=== PATIENT | male | born 1965 | race Caucasian/White ===

== ENCOUNTER 2017-02-10 06:53 | Emergency (ER) | payer BC ==
[2017-02-10] MEDS ORDERED: Pantoprazole IV* 40 MG IV ONE (07:20)
[2017-02-10 07:53] LABS: Hematocrit 48 % (42-52); Hemoglobin 16.2 g/dl (14.0-18.0); Mean Corpuscular HGB Conc 34 g/dl (31-36); Mean Corpuscular Hemoglobin 32 pg (27-31); Mean Corpuscular Volume 95 fL (80-94); Mean Platelet Volume 8 um3 (7.4-10.4); Red Blood Count 5.06 10^6/ul (4.0-5.4); Red Cell Distribution Width 13 % (10.5-15); White Blood Count 4.2 10^3/ul (3.5-10.8)
[2017-02-10 08:09] LABS: BUN/Creatinine Ratio 11.1 (8-20); Calcium 9.6 mg/dL (8.6-10.3); EGFR African American 93.5 (>60); EGFR Non-African American 72.7 (>60); Globulin 3.7 g/dL (2-4); Potassium 3.5 mmol/L (3.5-5.0); Total Bilirubin 0.4 mg/dL (0.2-1.0); Total Protein 7.7 g/dL (6.4-8.9)
--- NOTE | 2017-02-10 08:26 | ED ---
Tiffani Conley Thomas, scribed for Cassidy Delaney MD on 02/10/17 at 0722 . GI/ HPI - HPI Summary HPI Summary: The pt is a 51 y/o M presenting to the ED c/o blood in his stool that he first noticed yesterday. The patient was taking a BM when he noticed the toilet bowl was pretty red. Pt additionally c/o dizziness, abdominal bloating, and chronic constipation. Per triage note, the patient complains of nausea and vomiting. Pt denies any pain or any blood in his underwear. This is the first time that the patient has noticed blood in his stool. PMHx includes HTN. - History of Current Complaint Chief Complaint: EDGIBleed Time Seen by Provider: 02/10/17 07:11 Stated Complaint: BLOOD IN STOOL Hx Obtained From: Patient Onset/Duration: Started Days Ago - 1, Resolved Timing: Intermittent Severity: Moderate Current Severity: None Pain Intensity: 0 Associated Signs and Symptoms: Positive: Other: - blood in stool, dizziness, abd bloating, chronic constipation, N/V. NEGATIVE: pain, blood in underwear Aggravating Factor(s): Nothing Alleviating Factor(s): Nothing - Allergy/Home Medications Allergies/Adverse Reactions: Allergies Allergy/AdvReac Type Severity Reaction Status Date / Time No Known Allergies Allergy Verified 02/10/17 06:58 PMH/Surg Hx/FS Hx/Imm Hx Previously Healthy: No Endocrine/Hematology History: Denies: Hx Diabetes, Hx Thyroid Disease Cardiovascular History: Reports: Hx Hypertension Denies: Hx Congestive Heart Failure Respiratory History: Reports: Hx Asthma Denies: Hx Chronic Obstructive Pulmonary Disease (COPD) GI History: Denies: Hx Ulcer History: Denies: Hx Renal Disease - Surgical History Surgery Procedure, Year, and Place: appedectomy Infectious Disease History: No Infectious Disease History: Denies: Hx Hepatitis, Hx Human Immunodeficiency Virus (HIV), History Other Infectious Disease, Traveled Outside the [place] in Last 30 Days - Family History Known Family History: Positive: Hypertension - Social History Alcohol Use: Daily Alcohol Amount: 6-10 cans of beer a day Substance Use Type: Reports: None Smoking Status (MU): Never Smoked Tobacco Type: Smokeless Tobacco Amount Used/How Often: 1 CAN/DAY Length of Time of Smoking/Using Tobacco: 32 YEARS Have You Smoked in the Last Year: Yes - CHEWING TOBACCO Review of Systems Positive: Vomiting, Nausea, Other - Abd bloating, chronic constipation, bloody stools; NEGATIVE: pain Negative: Other - pain Psychological: Other - Dizziness All Other Systems Reviewed And Are Negative: Yes Physical Exam - Summary Physical Exam Summary: VITAL SIGNS: Reviewed. GENERAL: Patient is a well-developed and nourished male who is lying comfortable in the stretcher. Patient is not in any acute respiratory distress. HEAD AND FACE: No signs of trauma. No ecchymosis, hematomas or skull depressions. No sinus tenderness. EYES: PERRLA, EOMI x 2, No injected conjunctiva, no nystagmus. EARS: Hearing grossly intact. Ear canals and tympanic membranes are within normal limits. MOUTH: Oropharynx within normal limits. NECK: Supple, trachea is midline, no adenopathy, no JVD, no carotid bruit, no c- spine tenderness, neck with full ROM. CHEST: Symmetric, no tenderness at palpation LUNGS: Clear to auscultation bilaterally. No wheezing or crackles. CVS: Regular rate and rhythm, S1 and S2 present, no murmurs or gallops appreciated. ABDOMEN: Soft, non-tender. No signs of distention. No rebound no guarding, and no masses palpated. Hyperactive bowel sounds. RECTAL: There is brown stool and no external hemorrhoids. EXTREMITIES: FROM in all major joints, no edema, no cyanosis or clubbing. NEURO: Alert and oriented x 3. No acute neurological deficits. Speech is normal and follows commands. SKIN: Dry and warm Triage Information Reviewed: Yes Vital Signs On Initial Exam: Initial Vitals Temp Pulse Resp BP Pulse Ox 98.4 F 89 17 153/99 97 02/10/17 06:58 02/10/17 06:58 02/10/17 06:58 02/10/17 06:58 02/10/17 06:58 Vital Signs Reviewed: Yes Diagnostics - Vital Signs Vital Signs Temp Pulse Resp BP Pulse Ox 02/10/17 06:58 98.4 F 89 17 153/99 97 - Laboratory Lab Results: Lab Results 02/10/17 02/10/17 02/10/17 Range/Units 07:44 07:44 07:44 WBC 4.2 (3.5-10.8) 10^3/ul RBC 5.06 (4.0-5.4) 10^6/ul Hgb 16.2 (14.0-18.0) g/dl Hct 48 (42-52) % MCV 95 H (80-94) fL MCH 32 H (27-31) pg MCHC 34 (31-36) g/dl RDW 13 (10.5-15) % Plt Count 216 (150-450) 10^3/ul MPV 8 (7.4-10.4) um3 Neut % (Auto) 59.6 (38-83) % Lymph % (Auto) 25.7 (25-47) % Guthrie % (Auto) 11.1 H (1-9) % Eos % (Auto) 2.3 (0-6) % Baso % (Auto) 1.3 (0-2) % Absolute Neuts (auto) 2.5 (1.5-7.7) 10^3/ul Absolute Lymphs (auto) 1.1 (1.0-4.8) 10^3/ul Absolute Monos (auto) 0.5 (0-0.8) 10^3/ul Absolute Eos (auto) 0.1 (0-0.6) 10^3/ul Absolute Basos (auto) 0.1 (0-0.2) 10^3/ul Absolute Nucleated RBC 0 10^3/ul Nucleated RBC % 0.1 INR (Anticoag Therapy) 0.82 L (0.89-1.11) APTT 30.9 (26.0-36.3) seconds Sodium 139 (133-145) mmol/L Potassium 3.5 (3.5-5.0) mmol/L Chloride 103 (101-111) mmol/L Carbon Dioxide 24 (22-32) mmol/L Anion Gap 12 H (2-11) mmol/L BUN 12 (6-24) mg/dL Creatinine 1.08 (0.67-1.17) mg/dL Est GFR ( Amer) 93.5 (>60) Est GFR (Non-Af Amer) 72.7 (>60) BUN/Creatinine Ratio 11.1 (8-20) Glucose 101 H (70-100) mg/dL Calcium 9.6 (8.6-10.3) mg/dL Total Bilirubin 0.40 (0.2-1.0) mg/dL AST 89 H (13-39) U/L ALT 80 H (7-52) U/L Alkaline Phosphatase 60 (34-104) U/L Total Protein 7.7 (6.4-8.9) g/dL Albumin 4.0 (3.2-5.2) g/dL Globulin 3.7 (2-4) g/dL Albumin/Globulin Ratio 1.1 (1-3) Result Diagrams: 02/10/17 07:44 02/10/17 07:44 Lab Statement: Any lab studies that have been ordered have been reviewed, and results considered in the medical decision making process. GIGU Course/Dx - Course Assessment/Plan: The patient is hemodynamically stable and his bloodwork is unremarkable except for mildly elevated liver enzymes although the patient admits to drinking often. He was advised to follow up with his primary care physician in order to schedule a colonoscopy. - Diagnoses Provider Diagnoses: Lower GI bleed (mild), Probable internal hemorrhoids Discharge - Discharge Plan Condition: Stable Disposition: HOME Patient Education Materials: Gastrointestinal Bleeding (ED) Referrals: Matias Cruz MD [Primary Care Provider] - 3 Days Additional Instructions: Eat more fiber and stay well hydrated. Try to take an easy bowel movement once per day. Follow up with PMD and GI. I do recommend colonoscopy BASHIR. Return to the emergency department for new or worsening symptoms. The documentation as recorded by the Tiffani barajas Thomas accurately reflects the service I personally performed and the decisions made by me, Cassidy Delaney MD.
[2017-02-10 08:40] VITALS: BP 140/88
== END 2017-02-10 08:39 | disposition home or self-care (01) ==
LOC: ED 06:53
DX: K92.2 Gastrointestinal hemorrhage, unspecified (principal); K59.09 Other constipation; R42 Dizziness and giddiness; R11.2 Nausea with vomiting, unspecified; R14.0 Abdominal distension (gaseous)
CPT/HCPCS: 36415; 80053; 82270; 85025; 85610; 85730; 99282

== ENCOUNTER 2017-03-07 10:59 | Emergency (ER) | payer BC ==
--- OUTSIDE RECORDS SUMMARY | 2017-03-07 11:13 | XMS REPORT ---
:1965 External Reference #:[id number] Author Organization [facility] Address [address] [address] Phone [phone] Care Team Providers Name Role Phone Matias Cruz III, MD Primary Care Physician Unavailable Payers Type Date Identification Numbers Payment Provider Subscriber Commercial Effective: Policy Number: BS Facets Shannan Alejo 2012 [id number] PayID: [id number] [facility] [id number] [place] [id number] Problems Date Description Provider Status Onset: 05/31/2011 Chest pain Matias Cruz M.D. Active Onset: 05/31/2011 Elevated blood-pressure reading Matias Cruz M.D. Active without diagnosis of hypertension Onset: 05/31/2011 Pure hypercholesterolemia Matias Cruz M.D. Active Onset: 05/31/2011 Asthma without status asthmaticus Matias Cruz M.D. Active Onset: 05/31/2012 Gastroesophageal reflux disease Matias Cruz M.D. Active Onset: 12/13/2012 Benign essential hypertension Tristin Jeter M.D. 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 Cigarette Use Quit 4 Years Ago Cigarette Use light smoker only; began age 21 Smokeless Tobacco Current Smokeless Tobacco User, Uses 8 Times Daily ETOH Use 12/28/2012 Drinks 2 Alcoholic about 3 oz of whiskey Beverages Per Day daily Smoking Patient is a former smoker Recreational Drug Use Denies Drug Use Daily Caffeine Consumes on average 3 cups of regular coffee per day Exercise Type/Frequency Exercises rarely outside of working Allergies, Adverse Reactions, Alerts Date Description Reaction Status Severity Comments 05/31/2011 NKDA active Medications Medication Date Status Form Strength Qnty SIG Indications Ordering Provider Blood Pressure Misc 1unit large cuff I10 Matias Grady Monitor 2016 s bp machine Nancy Digital/Manual for home bp M.D. Inflate monitoring Proair HFA 02/16/ Active Aerosol 108(90Bas 1unit 2 puffs by Matias Grady 2016 e) s mouth four Nancy, mcg/Act times a day M.D. as needed Symbicort 06/01/ Active Aerosol 80-4.5mcg 20.7g inhale 2 J45.909 Matias Grady 2015 /Act m puffs by Nancy, mouth twice M.D. a day Chlorthalidone 06/01/ Active Tablets 25mg 45tab Take R03.0 Matias Grady 2015 s One-Half Nancy, Tablet By M.D. Mouth Every Day Symbicort 10/04/ Hx Aerosol 160-4.5mc 60uni 2 puffs J45.909 Matias Grady 2014 - g/Act ts twice a day Nancy 06/01/ MLeigh 2015 Ventolin HFA 07/03/ Hx Aerosol 108(90Bas 18uni inhale two Matias Grady 2013 - e) ts puffs by Nancy, 02/16/ mcg/Act mouth up to M.D. 2016 4 times a day as needed Omeprazole 05/31/ Hx Capsules 20mg 30cap 1 po qd Matias Grady 2012 - DR isabelle Cruz, 12/28/ M.DCarlos A 2012 Symbicort 12/07/ Hx Aerosol 80-4.5mcg 10.2u inhale two Bishop 2010 - /Act nits puffs by JAYDA Mendoza 10/04/ mouth twice 2015 daily Symbicort 04/23/ Hx Aerosol 80-4.5 10.20 2 puffs bid Scott 2009 - 0gm Rohan De La O, 12/07/ MLeigh,FACP 2010 Albuterol 05/30/ Hx 1unit 2 puffs up Scott Inhaler 2008 s to four Rohan De La O, 10/22/ times a day MLeigh,FACP 2013 as needed Singulair 05/30/ Hx Tablets 10mg 90tab 1 po qd Matias Grady 2008 - s Nancy, 02/18/ MLeigh 2009 Prednisone / Hx Tablets 20mg 20tab take 3 po Unknown 0000 - s qam x 12/28/ 3days, then 2012 2 po qam x3 days then 1 po qam x3 days then 12 po qam x3 days (take in am with food) Zithromax / Hx Tablets 250mg 1 tab take Unknown 0000 - 2 on day 1, then 2015 daily Immunizations CPT Code Status Date Vaccine Lot # [id number] Given 12/22/2016 Influenza Virus Vaccine, Quadrivalent, Split, Preservative Free [id number] Given 12/28/2012 Flu Vaccine Split Virus Preservative Free For [id number] 3Yr Older 13222 Given 06/10/2011 Pneumonia Vaccine [id number] 34610 Given 06/10/2011 Influenza Virus 3Yrs & Over [id number] 60080 Given 12/16/2009 Influenza Virus 3Yrs & Over [id number] 78075 Given 05/26/2007 Tdap - Tetanus/Diptheria/Acellular Pertussis 70716 Given 05/26/2007 Tdap - Tetanus/Diptheria/Acellular Pertussis Vital Signs Date Vital Result Comment 02/16/2017 Height 73 inches 6'1" Weight 301.00 lb Heart Rate 99 /min BP Systolic Sitting 148 mmHg BP Diastolic Sitting 105 mmHg Body Temperature 99.4 F O2 % BldC Oximetry 98 % BMI (Body Mass Index) 39.7 kg/m2 06/02/2015 Height 73 inches 6'1" Weight 325.00 lb Heart Rate 101 /min BP Systolic Sitting 144 mmHg BP Diastolic Sitting 92 mmHg Body Temperature 99.1 F O2 % BldC Oximetry 97 % BMI (Body Mass Index) 42.9 kg/m2 10/04/2014 Height 73 inches 6'1" Weight 310.25 lb Heart Rate 90 /min BP Systolic 148 mmHg BP Diastolic 100 mmHg Respiratory Rate 16 /min O2 % BldC Oximetry 97 % BMI (Body Mass Index) 40.9 kg/m2 08/07/2014 Height 73 inches 6'1" Weight 300.00 lb Heart Rate 97 /min BP Systolic 148 mmHg BP Diastolic 96 mmHg Pain Level 9 BMI (Body Mass Index) 39.6 kg/m2 07/04/2014 Height 72 inches 6'0" Weight 325.00 lb Heart Rate 88 /min BP Systolic Sitting 140 mmHg BP Diastolic Sitting 68 mmHg O2 % BldC Oximetry 95 % BMI (Body Mass Index) 44.1 kg/m2 12/28/2012 Weight 293.00 lb Heart Rate 106 /min BP Systolic Sitting 142 mmHg BP Diastolic Sitting 90 mmHg 12/13/2012 Height 72 inches 6'0" Weight 295.00 lb Heart Rate 76 /min BP Systolic 154 mmHg Ra large cuff BP Diastolic 110 mmHg Ra large cuff BP Systolic Sitting 154 mmHg LA cuff BP Diastolic Sitting 106 mmHg LA cuff BP Systolic Standing 154 mmHg BP Diastolic Standing 102 mmHg Respiratory Rate 18 /min BMI (Body Mass Index) 40.0 kg/m2 10/02/2012 Weight 306.00 lb Heart Rate 70 /min BP Systolic Sitting 144 mmHg BP Diastolic Sitting 102 mmHg O2 % BldC Oximetry 98 % 07/03/2012 Height 73.5 inches 6'1.50" Weight 309.00 lb Heart Rate 94 /min BP Systolic Sitting 148 mmHg initially 169/98 BP Diastolic Sitting 100 mmHg initially 169/98 BMI (Body Mass Index) 40.2 kg/m2 05/31/2012 Height 73.5 inches 6'1.50" Weight 303.00 lb Heart Rate 84 /min BP Systolic Sitting 134 mmHg BP Diastolic Sitting 82 mmHg BMI (Body Mass Index) 39.4 kg/m2 06/10/2011 Height 74 inches 6'2" Heart Rate 80 /min BP Systolic Sitting 118 mmHg lg BP Diastolic Sitting 86 mmHg lg 05/31/2011 Height 74 inches 6'2" Weight 297.00 lb Heart Rate 96 /min BP Systolic Sitting 148 mmHg BP Diastolic Sitting 98 mmHg BMI (Body Mass Index) 38.1 kg/m2 12/16/2009 Weight 288.00 lb Heart Rate 98 /min BP Systolic Sitting 142 mmHg BP Diastolic Sitting 90 mmHg 07/25/2009 Weight 293.00 lb Heart Rate 100 /min BP Systolic Sitting 140 mmHg BP Diastolic Sitting 82 mmHg 02/18/2009 Weight 286.00 lb Heart Rate 72 /min BP Systolic Sitting 134 mmHg BP Diastolic Sitting 94 mmHg 07/04/2008 Height 72.5 inches 6'0.50" Weight 286.00 lb Heart Rate 80 /min BP Systolic Sitting 122 mmHg BP Diastolic Sitting 92 mmHg BMI (Body Mass Index) 38.3 kg/m2 05/30/2008 Height 72.5 inches 6'0.50" Weight 285.00 lb Heart Rate 68 /min BP Systolic Sitting 128 mmHg BP Diastolic Sitting 88 mmHg BMI (Body Mass Index) 38.1 kg/m2 Results Test Date Test Result H/L Range Note Inr/Protime 02/10/2017 Inr 0.82 Low 0.89-1.11 Laboratory test finding 02/10/2017 Partial Thrombo 30.9 seconds 26.0- 36.3 Time PTT Comp Metabolic Panel 02/10/2017 Sodium 139 mmol/L 133-145 Potassium 3.5 mmol/L 3.5-5.0 Chloride 103 mmol/L 101-111 Co2 Carbon Dioxide 24 mmol/L 22-32 Anion Gap 12 mmol/L High 2-11 Glucose 101 mg/dL High 70-100 Blood Urea Nitrogen 12 mg/dL 6-24 Creatinine 1.08 mg/dL 0.67-1.17 BUN/Creatinine Ratio 11.1 8-20 Calcium 9.6 mg/dL 8.6-10.3 Total Protein 7.7 g/dL 6.4-8.9 Albumin 4.0 g/dL 3.2-5.2 Globulin 3.7 g/dL 2-4 Albumin/Globulin Ratio 1.1 1-3 Total Bilirubin 0.40 mg/dL 0.2-1.0 Alkaline Phosphatase 60 U/L 34-104 Alt 80 U/L High 7-52 Ast 89 U/L High 13-39 Egfr Non- 72.7 >60 Egfr 93.5 >60 1 CBC Auto Diff 02/10/2017 White Blood Count 4.2 10^3/uL 3.5-10.8 Red Blood Count 5.06 10^6/uL 4.0-5.4 Hemoglobin 16.2 g/dL 14.0-18.0 Hematocrit 48 % 42-52 Mean Corpuscular Volume 95 fL High 80-94 Mean Corpuscular Hemoglobin 32 pg High 27-31 Mean Corpuscular HGB Conc 34 g/dL 31-36 Red Cell Distribution Width 13 % 10.5-15 Platelet Count 216 10^3/uL 150-450 Mean Platelet Volume 8 um3 7.4-10.4 Abs Neutrophils 2.5 10^3/uL 1.5-7.7 Abs Lymphocytes 1.1 10^3/uL 1.0-4.8 Abs Monocytes 0.5 10^3/uL 0-0.8 Abs Eosinophils 0.1 10^3/uL 0-0.6 Abs Basophils 0.1 10^3/uL 0-0.2 Abs Nucleated RBC 0 10^3/uL Granulocyte % 59.6 % 38-83 Lymphocyte % 25.7 % 25-47 Monocyte % 11.1 % High 1-9 Eosinophil % 2.3 % 0-6 Basophil % 1.3 % 0-2 Nucleated Red Blood Cells % 0.1 Stool Occult Blood, 02/10/2017 Stool Occult Blood, SEE RESULT BELOW 2 Screen Screen Laboratory test finding 09/08/2014 Potassium Redraw 3.8 mmol/L 3.5-5.0 Magnesium 2.1 mg/dL 1.9-2.7 Ast Redraw 27 U/L 13-39 Laboratory test 09/08/2014 Blood Culture SEE RESULT BELOW 3, 4 finding CBC Auto Diff 09/08/2014 White Blood Count 7.4 10^3/uL 4.8-10.8 Red Blood Count 5.34 10^6/uL 4.0-5.4 Hemoglobin 17.3 g/dL 14.0-18.0 Hematocrit 51 % 42-52 Mean Corpuscular Volume 95 fL High 80-94 Mean Corpuscular Hemoglobin 32 pg High 27-31 Mean Corpuscular HGB Conc 34 g/dL 31-36 Red Cell Distribution Width 13 % 10.5-15 Platelet Count 233 10^3/uL 150-450 Mean Platelet Volume 8 um3 7.4-10.4 Abs Neutrophils 4.6 10^3/uL 1.5-7.7 Abs Lymphocytes 2.0 10^3/uL 1.0-4.8 Abs Monocytes 0.4 10^3/uL 0-0.8 Abs Eosinophils 0.2 10^3/uL 0-0.6 Abs Basophils 0.1 10^3/uL 0-0.2 Abs Nucleated RBC 0.02 10^3/uL Granulocyte % 62.4 % 38-83 Lymphocyte % 27.7 % 25-47 Monocyte % 6.0 % 1-9 Eosinophil % 2.7 % 0-6 Basophil % 1.2 % 0-2 Nucleated Red Blood Cells % 0.3 Laboratory test finding 09/08/2014 Magnesium TNP mg/dL 1.9-2.7 5 TSH (Thyroid Stim Horm) 1.14 ?IU/mL 0.34-5.60 6 Inr/Protime 09/08/2014 Inr 0.84 0.78-1.07 Laboratory test finding 09/08/2014 Partial Thrombo Time 33.3 seconds 26.0 -36.3 PTT D Dimer Quantitative < 200 ng/mL Less Than 230 7 Lactic Acid 2.2 mmol/L 0.5-2.2 B-Type Natriuretic Peptide BNP 28 pg/mL 8 Comp Metabolic Panel 09/08/2014 Sodium 138 mmol/L 133-145 Chloride 104 mmol/L 101-111 Co2 Carbon Dioxide 23 mmol/L 22-32 Glucose 88 mg/dL 70-100 Blood Urea Nitrogen 10 mg/dL 6-24 Creatinine 1.02 mg/dL 0.67-1.17 BUN/Creatinine Ratio 9.8 8-20 Calcium 9.2 mg/dL 8.6-10.3 9 Total Protein 8.0 g/dL 6.4-8.9 Albumin 4.4 g/dL 3.2-5.2 Globulin 3.6 g/dL 2-4 Albumin/Globulin Ratio 1.2 1-3 Total Bilirubin 0.30 mg/dL 0.2-1.0 Alkaline Phosphatase 88 U/L 34-104 Alt 32 U/L 7-52 Egfr Non- 78.3 >60 Egfr 100.7 >60 10 Potassium TNP mmol/L 3.5-5.0 11 Anion Gap TNP mmol/L 2-11 Ast TNP U/L 13-39 12 CKMB 09/08/2014 CKMB ng/mL 3.0 ng/mL 0.6-6.3 Laboratory test finding 09/08/2014 Lipase 40 U/L 11.0-82.0 13 Creatine Kinase(CK) 156 U/L 10-223 14 C Reactive Protein 5.52 mg/L High < 5.00 15 Troponin-I (TnI) 0.00 ng/mL <0.03 16 Lipid Profile (Trig/Chol/HDL) 07/01/2014 Triglycerides 97 mg/dL 17, 18 Cholesterol 216 mg/dL 17, 19 HDL Cholesterol 47.9 mg/dL 17, 20 LDL Cholesterol 149 mg/dL 17, 21 Comp Metabolic Panel 07/01/2014 Sodium 139 mmol/L 133-145 17 Potassium 4.4 mmol/L 3.5-5.0 17 Chloride 106 mmol/L 101-111 17 Co2 Carbon Dioxide 28 mmol/L 22-32 17 Anion Gap 5 mmol/L 2-11 17 Glucose 105 mg/dL High 70-100 17 Blood Urea Nitrogen 15 mg/dL 6-24 17 Creatinine 0.97 mg/dL 0.67-1.17 17 BUN/Creatinine Ratio 15.5 8-20 17 Calcium 9.4 mg/dL 8.6-10.3 17 Total Protein 7.0 g/dL 6.4-8.9 17 Albumin 4.2 g/dL 3.2-5.2 17 Globulin 2.8 g/dL 2-4 17 Albumin/Globulin Ratio 1.5 1-3 17 Total Bilirubin 0.40 mg/dL 0.2-1.0 17 Alkaline Phosphatase 58 U/L 34-104 17 Alt 28 U/L 7-52 17 Ast 33 U/L 13-39 17 Egfr Non- 83.0 >60 17 Egfr 106.7 >60 17, 22 CBC Auto Diff 06/19/2012 White Blood Count 5.5 10^3/uL 4.8-10.8 Red Blood Count 5.08 10^6/uL 4.0-5.4 Hemoglobin 15.6 g/dL 14.0-18.0 Hematocrit 48 % 42-52 Mean Corpuscular Volume 94 fL 80-94 Mean Corpuscular Hemoglobin 31 pg 27-31 Mean Corpuscular HGB Conc 33 g/dL 31-36 Red Cell Distribution Width 13 % 10.5-15 Platelet Count 214 10^3/uL 150-450 Mean Platelet Volume 9 um3 7.4-10.4 Abs Neutrophils 3.8 10^3/uL 1.5-7.7 Abs Lymphocytes 1.1 10^3/uL 1.0-4.8 Abs Monocytes 0.4 10^3/uL 0-0.8 Abs Eosinophils 0.1 10^3/uL 0-0.6 Abs Basophils 0.1 10^3/uL 0-0.2 Abs Nucleated RBC 0.01 10^3/uL Comp Metabolic Panel 06/19/2012 Sodium 142 mmol/L 133-145 Potassium 4.6 mmol/L 3.5-5.0 Chloride 108 mmol/L 101-111 Co2 Carbon Dioxide 26.0 mmol/L 22-32 Anion Gap 8.0 mmol/L 2-11 Glucose 98 mg/dL 70-100 Blood Urea Nitrogen 12 mg/dL 6-24 Creatinine 1.20 mg/dL 0.50-1.40 BUN/Creatinine Ratio 10.0 8-20 Calcium 9.7 mg/dL 8.1-9.9 Total Protein 7.5 g/dL 6.2-8.1 Albumin 4.1 g/dL 3.6-5.4 Globulin 3.4 g/dL 2-4 Albumin/Globulin Ratio 1.2 1-3 Total Bilirubin 0.5 mg/dL 0.4-1.5 Alkaline Phosphatase 67 U/L 30-110 Alt 27 U/L 14-54 Ast 22 U/L 12-42 Egfr Non- 65.5 >60 Egfr 84.2 >60 23 Laboratory test 06/19/2012 TSH (Thyroid Stimulating 1.12 miu/mL 0.34- 5.60 24 finding Horm) Lipid Profile 06/19/2012 Triglycerides 71 mg/dL 40-200 (Trig/Chol/HDL) Cholesterol 240 mg/dL High Less than 200 HDL Cholesterol 66 mg/dL High 40-60 25 Cholesterol/HDL Ratio 3.6 Average 1-4.44 LDL Cholesterol 159.8 mg/dL High Less Than 100 26 Manual Differential 06/19/2012 Neutrophil % 72 % 38-83 Lymphocytes % 18 % Low 25-47 Monocytes % 7 % 0-13 Eosinophils % 2 % 0-6 Reactive Lymph % 1 % 0-6 RBC Morphology Normal Normal Laboratory test finding 05/24/2011 Troponin-I 0.01 NG/ML 0-0.06 27 Urinalysis 05/24/2011 Ua Color YELLOW Yellow Appearance-Urine CLEAR Clear Specific Jackson-Ur 1.014 1.010-1.030 Esterase-Urine NEGATIVE Negative Nitrite NEGATIVE Negative [id number] NEGATIVE Negative Protein-Urine NEGATIVE Negative PH-Urine 8.0 5-9 Blood-Urine NEGATIVE Negative Ketones-Urine 2+ Negative Bilirubin-Ur NEGATIVE Negative Glucose-Urine NEGATIVE Negative CBC Auto Diff 05/24/2011 White Blood Count 5.5 CUMM 4.8-10.8 28 Red Cell Count 4.82 CUMM 4.6-6.2 28 Hemoglobin 15.4 g/dL 14.0-18.0 28 Hematocrit 45 % 42-52 28 Mean Corpuscular Volume 92 um3 80-94 28 Mean Corpuscular Hemoglob 32 pg High 27-31 28 Mean Corpuscular HGB Cone 35 g/dL 32-36 28 Redcell Distribution WDTH 13 % 10.5-15 28 Platelet Count 177 CUMM 150-450 28 Mean Platelet Volume 8.8 um3 7.4-10.4 28 Gran % 74.2 % 38-83 28 Lymph % 16.5 % Low 25-47 28 Mononuclear % 8.1 % 1-9 28 Eosinophil % 0.9 % 0-6 28 Basophil % 0.3 % 0-2 28 Abs Lymphs 0.9 Low 1.0-4.8 28 Abs Mononuclear 0.4 0-0.8 28 Absolute Neutrophil Count 4.1 1.5-7.7 28 Abs Eosinophils 0.1 0-0.6 28 Abs Basophils 0 0-0.2 28, 29 Laboratory test 05/24/2011 D Dimer Quantitative 261 NG/ML High Less Than 28, 30 finding 230 Comp Metabolic 05/24/2011 Sodium 138 mmol/L 135-145 28 Panel Potassium 4.1 mmol/L 3.5-5.0 28 Chloride 102 mmol/L 101-111 28 Co2 (Carbon Dioxide) 23.0 mmol/L 22-32 28 Anion Gap 13.0 mmol/L High 2-11 28, 31 Glucose 104 mg/dL High 70-100 28 BUN 10 mg/dL 6-24 28 Creatinine 0.9 mg/dL 0.50-1.40 28 One Over Creatinine 1.11 28 BUN/Creatinine Ratio 11.1 8-20 28 Calcium 9.2 mg/dL 8.1-9.9 28 Total Protein 7.7 GM/DL 6.2-8.1 28 Albumin 4.2 GM/DL 3.6-5.4 28 Globulin 3.5 GM/DL 2-4 28 Albumin/Globulin Ratio 1.2 1-3 28 Bilirubin Total 1.0 mg/dL 0.4-1.5 28, 32 Alkaline Phosphatase 48 U/L 39-117 28 Alt (SGPT) 94 U/L High 17-63 28 Ast (Sgot) 71 U/L High 12-42 28 eGFR Non- 91.7 > 60 28 eGFR 117.9 > 60 28, 33 Laboratory test finding 05/24/2011 Troponin-I 0.01 NG/ML 0-0.06 28, 34 Protime 05/24/2011 Inr 0.93 0.88-1.13 28, 35 Protime 10.9 SEC 10.3-13.5 28, 36 Laboratory test finding 05/24/2011 PTT (Aptt) 26.1 SEC 25.1-38.5 28 BNP Evaluatr 36.0 pg/mL 0-100 28 HIV Self Referred Nonreactive Nonreactive 28, 37 DR Cruz's Lab Panel 11/21/2009 TSH 0.80 MIU/ML 0.34-5.60 Comp Metabolic Panel 11/21/2009 Sodium 138 mmol/L 135-145 Potassium 4.3 mmol/L 3.5-5.0 Chloride 105 mmol/L 101-111 Co2 (Carbon Dioxide) 25.0 mmol/L 22-32 Anion Gap 8.0 mmol/L 2-11 38 Glucose 96 mg/dL 70-100 39 BUN 9 mg/dL 6-24 Creatinine 1.10 mg/dL 0.50-1.40 One Over Creatinine 0.90 BUN/Creatinine Ratio 8.2 8-20 Calcium 8.8 mg/dL 8.1-9.9 Total Protein 7.1 GM/DL 6.2-8.1 Albumin 3.9 GM/DL 3.6-5.4 Globulin 3.2 GM/DL 2-4 Albumin/Globulin Ratio 1.2 1-3 Bilirubin Total 0.6 mg/dL 0.4-1.5 40 Alkaline Phosphatase 56 U/L 39-117 Alt (SGPT) 23 U/L 17-63 Ast (Sgot) 18 U/L 12-42 eGFR Non- 78.0 > 60 eGFR 94.4 > 60 41 Lipid Profile (Trig/Chol/HDL) 11/21/2009 Triglyceride 82 mg/dL 40-200 Cholesterol 212 mg/dL High Less Than 200 42 High Density Lipoprotein 53 mg/dL 40-60 43 Cholesterol/HDL Ratio 4.00 AVERAGE 1-4.97 Low Density Lipoprotein 143 mg/dL High Less Than 100 44 CBC With Electronic Diff 11/21/2009 White Blood Count 4.6 CUMM Low 4.8- 10.8 Red Cell Count 4.96 CUMM 4.6-6.2 Hemoglobin 16.0 g/dL 14.0-18.0 Hematocrit 47 % 42-52 Mean Corpuscular Volume 94 um3 80-94 Mean Corpuscular Hemoglob 32 pg High 27-31 Mean Corpuscular HGB Cone 35 g/dL 32-36 Redcell Distribution WDTH 13 % 10.5-15 Platelet Count 223 CUMM 150-450 Mean Platelet Volume 7.7 um3 7.4-10.4 Gran % 65.1 % 38-83 Lymph % 23.2 % Low 25-47 Mononuclear % 9.0 % 1-9 Eosinophil % 2.1 % 0-6 Basophil % 0.6 % 0-2 Abs Lymphs 1.1 1.0-4.8 Abs Mononuclear 0.4 0-0.8 Absolute Neutrophil Count 3.0 1.5-7.7 Abs Eosinophils 0.1 0-0.6 Abs Basophils 0 0-0.2 Laboratory test finding 11/21/2009 PSA Screening 0.62 NG/ML 0-4 Laboratory test finding 06/04/2008 TSH 1.51 MIU/ML 0.34-5.60 Lipid Profile (Trig/Chol/HDL) 06/04/2008 Triglyceride 123 mg/dL 40-200 Cholesterol 218 mg/dL High Less Than 200 45 High Density Lipoprotein 62 mg/dL High 40-60 46 Cholesterol/HDL Ratio 3.52 AVERAGE 1-4.97 Low Density Lipoprotein 131 mg/dL High Less Than 100 47 Comp Metabolic Panel 06/04/2008 Sodium 134 mmol/L Low 135-145 Potassium 4.3 mmol/L 3.5-5.0 Chloride 103 mmol/L 101-111 Co2 (Carbon Dioxide) 27.0 mmol/L 22-32 Anion Gap 4.0 mmol/L 2-11 48 Glucose 81 mg/dL 70-100 49 BUN 9 mg/dL 6-24 Creatinine 1.10 mg/dL 0.50-1.40 One Over Creatinine 0.90 BUN/Creatinine Ratio 8.2 8-20 Calcium 9.2 mg/dL 8.1-9.9 50 Total Protein 7.2 GM/DL 6.2-8.1 Albumin 3.9 GM/DL 3.6-5.4 Globulin 3.3 GM/DL 2-4 Albumin/Globulin Ratio 1.2 1-3 Bilirubin Total 0.7 mg/dL 0.4-1.5 Alkaline Phosphatase 70 U/L 39-117 Alt (SGPT) 39 U/L 17-63 Ast (Sgot) 32 U/L 12-42 CBC With Electronic Diff 06/04/2008 White Blood Count 5.7 CUMM 4.8-10.8 Red Cell Count 5.21 CUMM 4.6-6.2 Hemoglobin 16.1 g/dL 14.0-18.0 Hematocrit 47 % 42-52 Mean Corpuscular Volume 90 um3 80-94 Mean Corpuscular Hemoglob 31 pg 27-31 Mean Corpuscular HGB Cone 34 g/dL 32-36 Redcell Distribution WDTH 13 % 10.5-15 Platelet Count 238 CUMM 150-450 Mean Platelet Volume 8.2 um3 7.4-10.4 Gran % 62.7 % 38-83 Lymph % 26.2 % 25-47 Mononuclear % 7.4 % 1-9 Eosinophil % 3.3 % 0-6 Basophil % 0.4 % 0-2 Abs Lymphs 1.5 1.0-4.8 Abs Mononuclear 0.4 0-0.8 Absolute Neutrophil Count 3.6 1.5-7.7 Abs Eosinophils 0.2 0-0.6 Abs Basophils 0 0-0.2 1 Because ethnic data is not always readily available, this report includes an eGFR for both -Americans and non- Americans. The National Kidney Disease Education Program (NKDEP) does not endorse the use of the MDRD equation for patients that are not between the ages of 18 and 70, are , have extremes of body size, muscle mass, or nutritional status, or are non- or non-. According to the National Kidney Foundation, irrespective of diagnosis, the stage of the disease is based on the level of kidney function: Stage Description GFR(mL/min/1.73 m(2)) 1 Kidney damage with normal or decreased GFR 90 2 Kidney damage with mild decrease in GFR 60-89 3 Moderate decrease in GFR 30-59 4 Severe decrease in GFR 15-29 5 Kidney failure <15 (or dialysis) 2 SEE RESULT BELOW Name: SHANNAN ALEJO : [address]: Cassidy Delaney MD Acct: [id number] Unit: [id number] AGE: 51 Location: ED Re02/10/17 SEX: M Status: REG ER SPEC: [id number] AMADOR: 02/10/17 [facility] DR: Cassidy Delaney MD REQ: [id number] RECD: 02/10/17 STATUS: ALY CORTES DR: Matias Cruz III, MD _ SOURCE: STOOL SPDESC: ORDERED: Occult Bl, Scn Procedure Result Reported Site Stool Occult Blood (1) Final 02/10/17- 36 ML Stool Occult Blood Negative Collection Date (1) 02/10/17 * ML - MAIN LAB ([facility]) . END OF REPORT * ML=Testing performed at Main Lab DEPARTMENT OF PATHOLOGY, [address] [place] [address] Brant Zuniga M.D. Director [facility] # [id number] 3 Patient is On Antibiotics? NO 4 SEE RESULT BELOW Name: SHANNAN ALEJO : [address]: Luther Quintero DO Acct: [id number] Unit: [id number] AGE: 49 Location: ED Re09/08/14 SEX: M Status: DEP ER SPEC: [id number] AMADOR: 09/08/14-[address]: Luther Quintero DO REQ: [id number] RECD: 09/08/14 STATUS: COMP [facility] DR: Matias Cruz III, MD _ SOURCE: BLOOD,VENO SPDESC: ORDERED: Blood Cult COMMENTS: Patient is On Antibiotics? NO Procedure Result Verified Site Aerobic Culture Bottle Final 09/13/14- 2242 ML No Growth Day 5 Anaerobic Culture Bottle Final 09/13/14- 2242 ML No Growth Day 5 * ML - MAIN LAB ([facility]) . END OF REPORT * ML=Testing performed at Main Lab DEPARTMENT OF PATHOLOGY, [address] [place] [address] Brant Zuniga M.D. Director [facility] # [id number] 5 Unable to report test result due to hemolysis. 6 HEMOLYZED SPECIMEN. NOTIFIED FELI/ED ABOUT JUAN DAVID CHAVEZ [id number]. 7 Please note: The following may produce a false positive D Dimer test: - Rheumatoid factor greater than 60 IU/ml - Plasma hemoglobin greater than 0.05 gm/dl - Bilirubin greater than 50 mg/dl - Lipids greater than 1000 mg/dl - FDP greater than 20 ug/ml 8 >100 to <200 pg/mL: likely compensated congestive heart failure (CHF) 200 to 400 pg/mL: likely moderate CHF >400 pg/mL: likely moderate to severe CHF 9 Specimen Lipemic. Result may not be valid. 10 Because ethnic data is not always readily available, this report includes an eGFR for both -Americans and non- Americans. The National Kidney Disease Education Program (NKDEP) does not endorse the use of the MDRD equation for patients that are not between the ages of 18 and 70, are , have extremes of body size, muscle mass, or nutritional status, or are non- or non-. According to the National Kidney Foundation, irrespective of diagnosis, the stage of the disease is based on the level of kidney function: Stage Description GFR(mL/min/1.73 m(2)) 1 Kidney damage with normal or decreased GFR 90 2 Kidney damage with mild decrease in GFR 60-89 3 Moderate decrease in GFR 30-59 4 Severe decrease in GFR 15-29 5 Kidney failure <15 (or dialysis) 11 Unable to report test result due to hemolysis. 12 Unable to report test result due to hemolysis. 13 HEMOLYZED SPECIMEN. NOTIFIED FELI/ED ABOUT REDRAW K AST [id number]. 14 HEMOLYZED SPECIMEN. NOTIFIED FELI/ED ABOUT REDRAW K AST [id number]. 15 Acute inflammation: >10.00 16 Reference Range and Interpretation: TnI (ng/mL) Interpretation Less Than 0.03 ng/mL Not supportive of diagnosis of [place] 0.03 - 0.50 ng/mL Indeterminate: suggest serial studies if clinically indicated. Greater than 0.5 ng/mL Consistent with diagnosis of [place] 17 FASTING 18 Desirable <150 Borderline high 150-199 High 200-499 Very High >500 19 Desirable <200 Borderline high 200-239 High >239 20 Low <40 Desirable: 40-60 High: >60 21 Desirable: <100 mg/dL Near Optimal: 100-129 mg/dL Borderline High: 130-159 mg/dL High: 160-189 mg/dL Very High: >189 mg/dL 22 Because ethnic data is not always readily available, this report includes an eGFR for both -Americans and non- Americans. The National Kidney Disease Education Program (NKDEP) does not endorse the use of the MDRD equation for patients that are not between the ages of 18 and 70, are , have extremes of body size, muscle mass, or nutritional status, or are non- or non-. According to the [employer], irrespective of diagnosis, the stage of the disease is based on the level of kidney function: Stage Description GFR(mL/min/1.73 m(2)) 1 Kidney damage with normal or decreased GFR 90 2 Kidney damage with mild decrease in GFR 60-89 3 Moderate decrease in GFR 30-59 4 Severe decrease in GFR 15-29 5 Kidney failure <15 (or dialysis) 23 Because ethnic data is not always readily available, this report includes an eGFR for both -Americans and non- Americans. The National Kidney Disease Education Program (NKDEP) does not endorse the use of the MDRD equation for patients that are not between the ages of 18 and 70, are , have extremes of body size, muscle mass, or nutritional status, or are non- or non-. According to the National Kidney Foundation, irrespective of diagnosis, the stage of the disease is based on the level of kidney function: Stage Description GFR(mL/min/1.73 m(2)) 1 Kidney damage with normal or decreased GFR 90 2 Kidney damage with mild decrease in GFR 60-89 3 Moderate decrease in GFR 30-59 4 Severe decrease in GFR 15-29 5 Kidney failure <15 (or dialysis) 24 FASTING 25 HDL Interpretation: Undesirable: High Risk: Less than 40 MG/DL Desirable: Low Risk: Greater than 60 MG/DL 26 LDL Interpretation: Low Risk Optimal Level: LDL Less than 100 MG/DL Near or Above Optimal: LDL 100-129 MG/DL Borderline High Risk: LDL 130-159 MG/DL High Risk: LDL 160-189 MG/DL Very High Risk: LDL Greater than 189 MG/DL 27 New Reference Range and Interpretation effective 12/15/2001 TnI (ng/ml) INTERPRETATION Less Than 0.06 ng/mL NOT SUPPORTIVE OF DIAGNOSIS OF [place] 0.06 - 0.50 ng/ml INDETERMINATE: SUGGEST SERIAL STUDIES IF CLINICALLY INDICATED. Greater than 0.5 ng/mL CONSISTENT WITH DIAGNOSIS OF [place] . 28 COMMENTS: PLEASE USE BLOOD IN LAB 29 Lymphopenia % 30 VERBAL TO ALEXUS/ED BY KACY at 1124 on 05/24/11. Results read back accurately. Please note: The following may produce a false positive D Dimer test: - Rheumatoid factor greater than 1400 IU/ml - Plasma hemoglobin greater than 0.5 gm/dl - Bilirubin greater than 18 mg/dl - Triglycerides greater than 1327 mg/dl - FDP greater than 10 ug/ml . 31 Anion gap measurement may be of limited value in the presence of any alkalosis, especially in a combined acid base disorder. . 32 A metabolite of Naproxen, O-desmethylnaproxen, has been shown to interfere with the Jendrassik-Terry method for measuring total bilirubin. Samples from patients who have taken Naproxen have shown spurious elevation in total bilirubin levels. 33 Because ethnic data is not always readily available, this report includes an eGFR for both -Americans and non- Americans. The National Kidney Disease Education Program (NKDEP) does not endorse the use of the MDRD equation for patients that are not between the ages of 18 and 70, are , have extremes of body size, muscle mass, or nutritional status, or are non- or non-. According to the National Kidney Foundation, irrespective of diagnosis, the stage of the disease is based on the level of kidney function: Stage Description GFR(mL/min/1.73 m(2)) 1 Kidney damage with normal or decreased GFR 90 2 Kidney damage with mild decrease in GFR 60-89 3 Moderate decrease in GFR 30-59 4 Severe decrease in GFR 15-29 5 Kidney failure <15 (or dialysis) 34 New Reference Range and Interpretation effective 12/15/2001 TnI (ng/ml) INTERPRETATION Less Than 0.06 ng/mL NOT SUPPORTIVE OF DIAGNOSIS OF [place] 0.06 - 0.50 ng/ml INDETERMINATE: SUGGEST SERIAL STUDIES IF CLINICALLY INDICATED. Greater than 0.5 ng/mL CONSISTENT WITH DIAGNOSIS OF [place] . 35 Recommended INR for Patients on Oral Anticoagulants Prophylaxis 2.0 - 3.0 Treatment of thrombosis 2.0 - 3.0 Prevention of embolism 2.0 - 3.0 Prevention of embolism from prosthetic heart valves 2.5 - 3.5 36 DIAGNOSIS,TREATMENT,AND THERAPY MUST BE BASED ON THE INR VALUE ALONE. 37 It is recognized that currently available assays for the detection of antibodies to HIV-1 and/or HIV-2 may not detect all infected individuals. HIV antibodies may be undetectable in some stages of the infection and in some clinical conditions. The performance of this assay has not been established for populations of infants or children. Assayed by Chemiluminescence Microparticle Immunoassay on the Matthieu Advia Centaur CP. Values obtained with different methods or kits cannot be used interchangeably.The diagnostic specificity of the ADVIA Centaur 1/O/2 Enhanced assay in the low risk population was 99.90% (6052/6058) with a 95% confidence interval of 99.78 to 99.96%. 38 Anion gap measurement may be of limited value in the presence of any alkalosis, especially in a combined acid base disorder. . 39 Note change in reference range as of 11/02/07. The change was based on recommendations from the [place] [employer]. 40 A metabolite of Naproxen, O-desmethylnaproxen, has been shown to interfere with the Jendrassik-[place] method for measuring total bilirubin. Samples from patients who have taken Naproxen have shown spurious elevation in total bilirubin levels. 41 Because ethnic data is not always readily available, this report includes an eGFR for both -Americans and non- Americans. The National Kidney Disease Education Program (NKDEP) does not endorse the use of the MDRD equation for patients that are not between the ages of 18 and 70, are , have extremes of body size, muscle mass, or nutritional status, or are non- or non-. According to the National Kidney Foundation, irrespective of diagnosis, the stage of the disease is based on the level of kidney function: Stage Description GFR(mL/min/1.73 m(2)) 1 Kidney damage with normal or decreased GFR 90 2 Kidney damage with mild decrease in GFR 60-89 3 Moderate decrease in GFR 30-59 4 Severe decrease in GFR 15-29 5 Kidney failure <15 (or dialysis) 42 CHOLESTEROL INTERPRETATION: Desirable: Less than 200 MG/DL Borderline-High Risk: 200-239 MG/DL High-Risk: 240 MG/DL and over 43 HDL INTERPRETATION: Undesirable: High Risk: Less than 40 MG/DL Desirable: Low Risk: Greater than 60 MG/DL 44 LDL INTERPRETATION: Low Risk Optimal Level: LDL Less than 100 MG/DL Near or Above Optimal: LDL 100-129 MG/DL Borderline High Risk: LDL 130-159 MG/DL High Risk: LDL 160-189 MG/DL Very High Risk: LDL Greater than 189 MG/DL 45 CHOLESTEROL INTERPRETATION: Desirable: Less than 200 MG/DL Borderline-High Risk: 200-239 MG/DL High-Risk: 240 MG/DL and over 46 HDL INTERPRETATION: Undesirable: High Risk: Less than 40 MG/DL Desirable: Low Risk: Greater than 60 MG/DL 47 LDL INTERPRETATION: Low Risk Optimal Level: LDL Less than 100 MG/DL Near or Above Optimal: LDL 100-129 MG/DL Borderline High Risk: LDL 130-159 MG/DL High Risk: LDL 160-189 MG/DL Very High Risk: LDL Greater than 189 MG/DL 48 Anion gap measurement may be of limited value in the presence of any alkalosis, especially in a combined acid base disorder. . 49 Note change in reference range as of 11/02/07. The change was based on recommendations from the [place] [employer]. 50 Please note change in reference range effective 07 . Procedures Date CPT Code Description Status 12/13/2012 90215 EKG Tracing & Interpretation Completed 10/11/2012 60901 Polysomnography Sleep Staging 4+ Parameters W/Cpap Completed 05/31/2011 75373 EKG Tracing & Interpretation Completed 06/04/2008 63768 Holter Monitor Interpretation Completed 05/30/2008 03934 Spirometry Incl Graphic Record, Timed Expiratory Flow Completed Rate 05/30/2008 36640 EKG Tracing & Interpretation Completed 05/26/2007 91540 EKG Tracing & Interpretation Completed 05/26/2007 35335 EKG Tracing & Interpretation Completed Encounters Type Date Location Provider CPT E/M Dx Office Visit 06/02/2015 [facility] Internal Medicine Matias Cruz, 87365 R03.0 11:20a - Rosas Martin Office Visit 10/04/[address] [place] [address] 493.90 1:00p Services Of [facility] 327.23 530.81 278.00 Office Visit 08/07/2014 1:00p [facility] Mario Swanson M.D. 03378 840.7 C.M.A. 719.41 Office Visit 07/04/2014 3:00p [facility] Internal Medicine Matias Cruz, 84396 V70.0 - Rosas Martin 493.90 530.81 790.21 796.2 272.0 719.41 327.23 Office Visit 12/28/2012 2:20p [facility] Internal Medicine Matias Cruz, 82423 796.2 - Rosas Martin v04.81 Office Visit 12/13/2012 4:00p [facility] Tristin Jeter, [address]9650 796.2 Roman Martin 401.1 Office Visit 10/02/2012 2:40p [facility] Internal Medicine Coleen Mckeon M.D. 55331 493.90 - [place] 530.81 Office Visit 07/03/2012 9:40a [facility] Internal Medicine Matias Cruz, 75055 530.81 - Rosas Martin 493.90 272.0 796.2 Office Visit 05/31/2012 9:20a [facility] Internal Medicine Matias Cruz, 18466 780.79 - Rosas Martin 493.90 530.81 272.0 Office Visit 06/10/2011 9:20a [facility] Internal Medicine Matias Cruz, 94169 V70.0 - Rosas Martin 493.90 272.0 786.50 V04.81 V03.82 Office Visit 05/31/2011 10:40a [facility] Internal Medicine Matias Cruz, 22077 786.50 - Rosas Martin 796.2 272.0 493.90 794.8 Office Visit 12/16/2009 3:40p DO Not Use Legal [facility], 62163 V04.81 Dre Martin 493.90 272.0 796.2 708.9 Office Visit 07/25/2009 1:40p DO Not Use Legal [facility], 72430 493.90 Dre Martin Office Visit 07/04/2008 3:15p [facility], 41345 493.90 [facility] 05/30/2008 2:00p [facility], 53826 493.90 [facility].DCarlos A 401.1 Office Visit 05/26/2007 1:15p DO Not Use Legal [facility] Drea Aguayo, 02422 V70.0 M.D., FACP 528.9 401.1 272.0 786.50 V06.1 Office Visit 01/06/2006 2:45p DO Not Use Legal [facility] Dreaasher Aguayo, 03251 530.81 M.D., FACP 493.90 Office Visit 12/15/2005 10:30a DO Not Use Legal [facility] Leesa Siddiqicristina, 28007 786.2 N.P. 493.90 Plan of Care Future Appointment(s):03/22/2017 3:20 pm - Matias Cruz M.D. at [facility] Internal Medicine [facility]02/16/2017 - Matias Cruz M.D.K62.5 Hemorrhage of anus and rectumReferral:Franki Estrada MD, GonqddlztomyutkeH55 Essential (primary) hypertensionNew Medication:Blood Pressure Monitor Digital/ Manual InflateFollow up:1 [id number] Obstructive sleep apnea (adult) (pediatric )J45.909 Unspecified asthma, uncomplicated
[2017-03-07] MEDS ORDERED: Sucralfate TAB* 1 GM PO ONE (11:19)
[2017-03-07] MEDS ORDERED: Pantoprazole IV* 40 MG IV ONE (11:19)
[2017-03-07 11:52] LABS: ABS Basophils 0.1 10^3/ul (0-0.2); ABS Eosinophils 0.1 10^3/ul (0-0.6); ABS Monocytes 0.5 10^3/ul (0-0.8); ABS Nucleated RBC 0.04 10^3/ul; Eosinophil % 0.9 % (0-6); Hematocrit 47 % (42-52); Hemoglobin 16.7 g/dl (14.0-18.0); Lymphocyte % 13.3 % (25-47); Mean Corpuscular HGB Conc 35 g/dl (31-36); Mean Corpuscular Hemoglobin 33 pg (27-31); Mean Corpuscular Volume 93 fL (80-94); Mean Platelet Volume 7 um3 (7.4-10.4); Nucleated Red Blood Cells % 0.5; Platelet Count 255 10^3/ul (150-450); Red Blood Count 5.08 10^6/ul (4.0-5.4); Red Cell Distribution Width 13 % (10.5-15); White Blood Count 7.6 10^3/ul (3.5-10.8)
--- NOTE | 2017-03-07 11:52 | RAD ---
INDICATION: Chest pain. COMPARISON: Comparison is made with a prior study from May 30, 2015. TECHNIQUE: A portable view of the chest was obtained. FINDINGS: Cardiac and mediastinal contours appear to be within normal limits. The lungs are clear. No pleural effusion is seen. IMPRESSION: NO EVIDENCE FOR ACUTE DISEASE.
[2017-03-07 12:05] LABS: EGFR Non-African American 75.9 (>60)
[2017-03-07] MEDS ORDERED: Aspirin TAB* 325 MG PO ONE (13:31)
[2017-03-07 15:04] VITALS: BP 140/98
--- NOTE | 2017-03-07 19:08 | ED ---
Kranthi Conley Tecjoon, scribed for Gage Muñoz MD on 03/07/17 at 1123 . HPI Chest Pain - HPI Summary HPI Summary: This patient is a 51 year old male presenting to [facility] with a chief complaint of chest pain since 429. Pt states it occurred while he was driving home from work. Pt notes that this pain hasnt worsened since it started. The pain is rated 3/10 in severity. Symptoms aggravated by deep breaths, but isnt affected by movement or ambulation. 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 Patient additionally reports vomiting. Patient denies pain radiation, nausea, diaphoresis. Patient is familiar with these symptoms. - History of Current Complaint Chief Complaint: EDChestPainROMI Time Seen by Provider: 03/07/17 11:07 Hx Obtained From: Patient Onset/Duration: Started Hours Ago Time of Onset: 04:30 Timing: Constant Initial Severity: Mild Current Severity: Mild Pain Intensity: 3 Pain Scale Used: 0-10 Numeric Chest Pain Location: Diffuse Chest Pain Radiates: No Aggravating Factor(s): Deep Breaths Alleviating Factor(s): Nothing Associated Signs and Symptoms: Positive: Negative - nausea, diaphoresis, Vomiting - Allergy/Home Medications Allergies/Adverse Reactions: Allergies Allergy/AdvReac Type Severity Reaction Status Date / Time No Known Allergies Allergy Verified 02/10/17 06:58 PMH/Surg Hx/FS Hx/Imm Hx Previously Healthy: No Endocrine/Hematology History: Denies: Hx Diabetes, Hx Thyroid Disease Cardiovascular History: Reports: Hx Hypertension Denies: Hx Congestive Heart Failure Respiratory History: Reports: Hx Asthma Denies: Hx Chronic Obstructive Pulmonary Disease (COPD) GI History: Reports: Hx Hiatal Hernia Denies: Hx Ulcer History: Denies: Hx Renal Disease Psychiatric History: Reports: Hx Anxiety - Surgical History Surgery Procedure, Year, and Place: appedectomy Infectious Disease History: Denies: Hx Hepatitis, Hx Human Immunodeficiency Virus (HIV), History Other Infectious Disease, Traveled Outside the [place] in Last 30 Days - Family History Known Family History: Positive: Hypertension, Respiratory Disease - emphysema - Social History Alcohol Use: Daily Alcohol Amount: 6-10 cans of beer a day Hx Substance Use: No Substance Use Type: Reports: None Hx Tobacco Use: Yes Smoking Status (MU): Former Smoker Type: Smokeless Tobacco Amount Used/How Often: 1 CAN/DAY Length of Time of Smoking/Using Tobacco: 32 YEARS Have You Smoked in the Last Year: Yes - CHEWING TOBACCO Review of Systems Negative: Fever, Skin Diaphoresis Positive: Chest Pain Positive: Vomiting. Negative: Nausea All Other Systems Reviewed And Are Negative: Yes Physical Exam - Summary Physical Exam Summary: Appearance: The patient is well-nourished in no acute distress and in no acute pain. Skin: The skin is warm and dry and skin color reflects adequate perfusion. HEENT: The head is normocephalic and atraumatic. The pupils are equal and reactive. The conjunctivae are clear and without drainage. Nares are patent and without drainage. Mouth reveals moist mucous membranes and the throat is without erythema and exudate. The external ears are intact. The ear canals are patent and without drainage. The tympanic membranes are intact. Neck: the neck is supple with full range of motion and non-tender. There are no carotid bruits. There is no neck vein distension. Respiratory: Chest is non-tender. Lungs are clear to auscultation and breath sounds are symmetrical and equal. Cardiovascular: Heart is regular rate and rhythm. There is no murmur or rub auscultated. There is no peripheral edema and pulses are symmetrical and equal. Abdomen: The abdomen is soft and non-tender. There are normal bowel sounds heard in all four quadrants and there is no organomegaly palpated. Musculoskeletal: There is no back tenderness noted. Extremities are non-tender with full range of motion. There is good capillary refill. There is no peripheral edema or calf tenderness elicited. Neurological: Patient is alert and oriented to person, place and time. The patient has symmetrical motor strength in all four extremities. Cranial nerves are grossly intact. Deep tendon reflexes are symmetrical and equal in all four extremities. Psychiatric: The patient has an appropriate affect and does not exhibit any anxiety or depression. Triage Information Reviewed: Yes Vital Signs On Initial Exam: Initial Vitals Temp Pulse Resp BP Pulse Ox 97.9 F 123 17 162/101 97 03/07/17 11:01 03/07/17 11:01 03/07/17 11:01 03/07/17 11:01 03/07/17 11:01 Vital Signs Reviewed: Yes Diagnostics - Vital Signs Vital Signs Temp Pulse Resp BP Pulse Ox 03/07/17 11:01 97.9 F 123 17 162/101 97 - Laboratory Lab Results: Lab Results 03/07/17 03/07/17 03/07/17 Range/Units 11:42 11:42 11:42 WBC 7.6 (3.5-10.8) 10^3/ul RBC 5.08 (4.0-5.4) 10^6/ul Hgb 16.7 (14.0-18.0) g/dl Hct 47 (42-52) % MCV 93 (80-94) fL MCH 33 H (27-31) pg MCHC 35 (31-36) g/dl RDW 13 (10.5-15) % Plt Count 255 (150-450) 10^3/ul MPV 7 L (7.4-10.4) um3 Neut % (Auto) 77.9 (38-83) % Lymph % (Auto) 13.3 L (25-47) % Zapata % (Auto) 7.1 (1-9) % Eos % (Auto) 0.9 (0-6) % Baso % (Auto) 0.8 (0-2) % Absolute Neuts (auto) 6.0 (1.5-7.7) 10^3/ul Absolute Lymphs (auto) 1.0 (1.0-4.8) 10^3/ul Absolute Monos (auto) 0.5 (0-0.8) 10^3/ul Absolute Eos (auto) 0.1 (0-0.6) 10^3/ul Absolute Basos (auto) 0.1 (0-0.2) 10^3/ul Absolute Nucleated RBC 0.04 10^3/ul Nucleated RBC % 0.5 D-Dimer, Quantitative < 200 (Less Than 230) ng/mL Sodium 135 (133-145) mmol/L Potassium 3.6 (3.5-5.0) mmol/L Chloride 102 (101-111) mmol/L Carbon Dioxide 24 (22-32) mmol/L Anion Gap 9 (2-11) mmol/L BUN 13 (6-24) mg/dL Creatinine 1.04 (0.67-1.17) mg/dL Est GFR ( Amer) 97.6 (>60) Est GFR (Non-Af Amer) 75.9 (>60) BUN/Creatinine Ratio 12.5 (8-20) Glucose 109 H (70-100) mg/dL Lactic Acid (0.5-2.0) mmol/L Calcium 9.5 (8.6-10.3) mg/dL Total Bilirubin 0.60 (0.2-1.0) mg/dL AST 40 H (13-39) U/L ALT 39 (7-52) U/L Alkaline Phosphatase 56 (34-104) U/L Troponin I 0.01 (<0.04) ng/mL Total Protein 7.9 (6.4-8.9) g/dL Albumin 4.1 (3.2-5.2) g/dL Globulin 3.8 (2-4) g/dL Albumin/Globulin Ratio 1.1 (1-3) 03/07/17 03/07/17 Range/Units 11:42 14:17 WBC (3.5-10.8) 10^3/ul RBC (4.0-5.4) 10^6/ul Hgb (14.0-18.0) g/dl Hct (42-52) % MCV (80-94) fL MCH (27-31) pg MCHC (31-36) g/dl RDW (10.5-15) % Plt Count (150-450) 10^3/ul MPV (7.4-10.4) um3 Neut % (Auto) (38-83) % Lymph % (Auto) (25-47) % [place]ata % (Auto) (1-9) % Eos % (Auto) (0-6) % Baso % (Auto) (0-2) % Absolute Neuts (auto) (1.5-7.7) 10^3/ul Absolute Lymphs (auto) (1.0-4.8) 10^3/ul Absolute Monos (auto) (0-0.8) 10^3/ul Absolute Eos (auto) (0-0.6) 10^3/ul Absolute Basos (auto) (0-0.2) 10^3/ul Absolute Nucleated RBC 10^3/ul Nucleated RBC % D-Dimer, Quantitative (Less Than 230) ng/mL Sodium (133-145) mmol/L Potassium (3.5-5.0) mmol/L Chloride (101-111) mmol/L Carbon Dioxide (22-32) mmol/L Anion Gap (2-11) mmol/L BUN (6-24) mg/dL Creatinine (0.67-1.17) mg/dL Est GFR ( Amer) (>60) Est GFR (Non-Af Amer) (>60) BUN/Creatinine Ratio (8-20) Glucose (70-100) mg/dL Lactic Acid 1.1 (0.5-2.0) mmol/L Calcium (8.6-10.3) mg/dL Total Bilirubin (0.2-1.0) mg/dL AST (13-39) U/L ALT (7-52) U/L Alkaline Phosphatase (34-104) U/L Troponin I 0.00 (<0.04) ng/mL Total Protein (6.4-8.9) g/dL Albumin (3.2-5.2) g/dL Globulin (2-4) g/dL Albumin/Globulin Ratio (1-3) Result Diagrams: 03/07/17 11:42 03/07/17 11:42 Lab Statement: Any lab studies that have been ordered have been reviewed, and results considered in the medical decision making process. - Radiology CXR Xray Interpretation: No Acute Changes - IMPRESSION: NO EVIDENCE FOR ACUTE DISEASE. ED physician has reviewed this radiology report. Radiology Interpretation Completed By: Radiologist - EKG 1141 Cardiac Rate: NL EKG Rhythm: Sinus Rhythm - 89 BPM EKG Interpretation: No Significant Change from 05/30/15 EKG Comparison: No Significant Change Chest Pain Course/Dx - Course Course Of Treatment: Mr. 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 It has continued unchanged aside from worsening some so he got worried and came in. He denied associated symptoms and reported it was exaceerbated by deep breaths only. His W/U here was negative including d-dimer and two trops. His EDACS score was 6 and I D/C'd him to F/U with his PMD. - Diagnoses Provider Diagnoses: Chest pain Discharge - Discharge Plan Condition: Fair Disposition: HOME Patient Education Materials: Chest Pain (ED) Referrals: Matias Cruz MD [Primary Care Provider] - 3 Days The documentation as recorded by the Kranthi barajas Tecjoon accurately reflects the service I personally performed and the decisions made by me, Gage Muñoz MD.
== END 2017-03-07 15:03 | disposition home or self-care (01) ==
LOC: ED 10:59
DX: R07.9 Chest pain, unspecified (principal); I10 Essential (primary) hypertension; F41.9 Anxiety disorder, unspecified; F17.220 Nicotine dependence, chewing tobacco, uncomplicated
CPT/HCPCS: 36415; 71010; 80053; 83605; 84484; 85025; 85379; 93005; 96374; 99283; A9270-GY

== ENCOUNTER 2018-06-14 07:55 | Emergency (ER) | payer BC ==
[2018-06-14] MEDS ORDERED: Albuterol/Ipratropium NEB.SOL* Albuterol 2.5 MG/Ipratropium 0.5 MG 3 ML INH ONE (08:05)
[2018-06-14] MEDS ORDERED: methylPREDNISolone 125 MG* 2 ML VIAL IV ONE (08:05)
[2018-06-14] MEDS ORDERED: NS 0.9% 1000 ML** 1,000 ML IV ONE (08:05)
--- NOTE | 2018-06-14 08:11 | ED ---
Respiratory - HPI Summary HPI Summary: Pt is a 53 y/o M presenting to the ED with a chief complaint of shortness of breath onset 06/12/18, worsened with exertion. The pt is a former smoker and has asthma, so he has a nebulizer and rescue inhaler that he uses at home. He usually feels fine when he uses these, but the sob has been persistent. He also reports a productive cough, R arm numbness, tongue numbness, and some chest pain that he associates with his reflux/asthma/anxiety combined. He denies fever. - History of Current Complaint Chief Complaint: [place] Stated Complaint: "I'M HAVING A HARD TIME BREATHING" PER PT Time Seen by Provider: 06/14/18 07:58 Hx Obtained From: Patient Onset/Duration: Gradual Onset, Lasting Days, Still Present Timing: Constant Initial Severity: Mild Current Severity: None Pain Intensity: 0 Character: Cough (Productive), Dyspnea on Exertion Sputum Amount: Moderate Aggravating Factor(s): Exertion, Deep Breaths Alleviating Factor(s): Nothing Associated Signs and Symptoms: SOB, Chest Pain with Cough, Dyspnea - Allergy/Home Medications Allergies/Adverse Reactions: Allergies Allergy/AdvReac Type Severity Reaction Status Date / Time No Known Allergies Allergy Verified 06/14/18 08:01 PMH/Surg Hx/FS Hx/Imm Hx Previously Healthy: Yes Endocrine/Hematology History: Denies: Hx Diabetes, Hx Thyroid Disease Cardiovascular History: Reports: Hx Hypertension Denies: Hx Congestive Heart Failure Respiratory History: Reports: Hx Asthma Denies: Hx Chronic Obstructive Pulmonary Disease (COPD) GI History: Reports: Hx Gastroesophageal Reflux Disease, Hx Hiatal Hernia Denies: Hx Ulcer History: Denies: Hx Renal Disease Psychiatric History: Reports: Hx Anxiety - Surgical History Surgery Procedure, Year, and Place: appedectomy Infectious Disease History: No Infectious Disease History: Denies: Hx Hepatitis, Hx Human Immunodeficiency Virus (HIV), History Other Infectious Disease, Traveled Outside the [place] in Last 30 Days - Family History Known Family History: Positive: Hypertension, Respiratory Disease - emphysema - Social History Alcohol Use: Daily Alcohol Amount: 6-10 cans of beer a day Hx Substance Use: No Substance Use Type: Reports: None Hx Tobacco Use: Yes Smoking Status (MU): Former Smoker Type: Smokeless Tobacco Amount Used/How Often: 1 CAN/DAY Length of Time of Smoking/Using Tobacco: 32 YEARS Have You Smoked in the Last Year: Yes - CHEWING TOBACCO Review of Systems Negative: Fever Positive: Chest Pain Positive: Shortness Of Breath, Cough Positive: Numbness - R arm, tongue All Other Systems Reviewed And Are Negative: Yes Physical Exam - Summary Physical Exam Summary: VITAL SIGNS: Reviewed. GENERAL: Patient is a well-developed and nourished male who is lying comfortable in the stretcher. Patient is not in any acute respiratory distress. HEAD AND FACE: No signs of trauma. No ecchymosis, hematomas or skull depressions. No sinus tenderness. EYES: PERRLA, EOMI x 2, No injected conjunctiva, no nystagmus. EARS: Hearing grossly intact. Ear canals and tympanic membranes are within normal limits. MOUTH: Oropharynx within normal limits. NECK: Supple, trachea is midline, no adenopathy, no JVD, no carotid bruit, no c- spine tenderness, neck with full ROM. CHEST: Symmetric, no tenderness at palpation LUNGS: Decreased breath sounds bilaterally. No wheezing or crackles. CVS: Regular rate and rhythm, S1 and S2 present, no murmurs or gallops appreciated. ABDOMEN: Soft, non-tender. No signs of distention. No rebound no guarding, and no masses palpated. Bowel sounds are normal. EXTREMITIES: FROM in all major joints, no edema, no cyanosis or clubbing. NEURO: Alert and oriented x 3. No acute neurological deficits. Speech is normal and follows commands. SKIN: Dry and warm Triage Information Reviewed: Yes Vital Signs On Initial Exam: Initial Vitals Temp Pulse Resp BP Pulse Ox 96.8 F 112 20 169/107 95 06/14/18 07:57 06/14/18 07:57 06/14/18 07:57 06/14/18 07:57 06/14/18 07:57 Vital Signs Reviewed: Yes Diagnostics - Vital Signs Vital Signs Temp Pulse Resp BP Pulse Ox 06/14/18 07:57 96.8 F 112 20 169/107 95 - Laboratory Result Diagrams: 06/14/18 08:33 06/14/18 08:33 Lab Statement: Any lab studies that have been ordered have been reviewed, and results considered in the medical decision making process. - Radiology CXR Radiology Interpretation Completed By: Radiologist Summary of Radiographic Findings: FINDINGS CONSISTENT WITH COPD, NO EVIDENCE FOR ACUTE FINDING. ED physician has reviewed this report. - EKG 0817 Cardiac Rate: Tachycardia - 101bpm EKG Rhythm: Sinus Tachycardia ST Segment: Normal Ectopy: None EKG Comparison: No Significant Change - from 03/07/17 Re-Evaluation - Re-Evaluation 1st re-eval Re-Evaluation Time: 10:30 Change: Improved Comment: The pt's respiratory issues have significantly improved; he is no longer wheezing and his SaO2 is 97% on room air. He will be discharged with a dx of asthma exacerbation and COPD exacerbation. Disposition - Course Assessment/Plan: Patient is a 53-year-old male who presents to the emergency department with a chief complaint of shortness of breath. Blood work without any significant abnormality except for increased LFTs. The patient reports that he drinks everyday. Urinalysis is negative for UTI. Influenza A and B is negative. Chest x-ray impression: Findings consistent with COPD. No evidence for acute findings. In the ED course the patient was given manipulative treatment with Solu-Medrol and the symptoms have significantly improved. Re- examination of the lungs are clear with questionable bilateral expiratory wheezing. Patient is feeling better and he is saturating 97- 98% on room air. The patient is not tachycardic therefore I believe that the patient does have any risks for PE. I discussed all the findings and test results with the patient. Patient was instructed to return to the emergency room immediately if any of the symptoms return or worsen. Plan of care was discussed with the patient, he understands and agrees. All questions were answered at patient satisfaction. There were no further complaints or concerns. Lung exam before discharge: CTA B/L. Good air exchange. No wheezing or crackles heard. CVS: S1 and S2 present. No murmurs appreciated. Patient is alert and oriented x 3. Patient is hemodynamically stable. Patient will be discharged home with follow up his PCP in the next 2-3 days. - Diagnoses Provider Diagnoses: Asthma exacerbation, COPD exacerbation Discharge - Sign-Out/Discharge Documenting (check all that apply): Patient Departure Patient Received Moderate/Deep Sedation with Procedure: No - Discharge Plan Condition: Stable Disposition: HOME Prescriptions: Albuterol HFA INHALER* [Ventolin HFA Inhaler*] 2 puff INH Q4H PRN #1 mdi PRN Reason: Sob/Wheezing Albuterol/Ipratropium NEB.KATERYNA* [Duoneb (Albuterol 2.5 MG/Ipratropium 0.5 MG)] 1 neb INH Q4H #1 box predniSONE [Prednisone 20 MG TAB] 40 mg PO DAILY #8 tablet Referrals: Matias Cruz MD [Primary Care Provider] - Additional Instructions: Please follow up with your primary care provider in the next 3 days. Return to the ED with any new or worsening symptoms. - Billing Disposition and Condition Condition: STABLE Disposition: Home - Attestation Statements Document Initiated by Scribe: Yes Documenting Scribe: Lauren Nunez Provider For Whom [place] is Documenting (Include Credential): Matias Price MD. Scribe Attestation: Lauren Conley, mickyed for Matias Price MD. on 06/14/18 at 1739. Scribe Documentation Reviewed: Yes Provider Attestation: The documentation as recorded by the [email or web address] accurately reflects the service I personally performed and the decisions made by , Matias Price MD. Status of Scribe Document: Viewed
[2018-06-14 08:46] LABS: ABS Basophils 0 10^3/ul (0-0.2); ABS Eosinophils 0.1 10^3/ul (0-0.6); ABS Lymphocytes 0.8 10^3/ul (1.0-4.8); ABS Monocytes 0.4 10^3/ul (0-0.8); ABS Neutrophils 2.9 10^3/ul (1.5-7.7); ABS Nucleated RBC 0 10^3/ul; Eosinophil % 2.1 %; Hematocrit 49 % (36-46); Hemoglobin 16.5 g/dL (14.0-18.0); Lymphocyte % 18.2 %; Mean Corpuscular HGB Conc 34 g/dL (31-36); Mean Corpuscular Hemoglobin 32 pg (27-31); Mean Corpuscular Volume 95 fL (80-94); Mean Platelet Volume 7.9 fL (7.4-10.4); Nucleated Red Blood Cells % 0.1; Platelet Count 189 10^3/uL (150-450); Red Blood Count 5.09 10^6 /uL (4.18-5.48); Red Cell Distribution Width 13 % (10.5-15); White Blood Count 4.3 10^3/uL (3.5-10.8)
[2018-06-14 09:01] LABS: Urine Bacteria Absent (Absent); Urine Red Blood Cell 1+(3-5/hpf) (Absent); Urine Squamous Epithelial Cell Present (Absent); Urine White Blood Cell Trace(0-5/hpf) (Absent)
[2018-06-14 09:05] LABS: Influenza A Molecular NEGATIVE (Negative); Influenza B Molecular NEGATIVE (Negative); Urine Appearance Clear; Urine Bilirubin Negative (Negative); Urine Blood Negative (Negative); Urine Color Yellow; Urine Glucose Negative (Negative); Urine Ketones Negative (Negative); Urine Nitrite Negative (Negative); Urine Protein 1+(30 mg/dL) (Negative); Urine Specific Gravity 1.021 (1.010-1.030); Urine Urobilinogen Negative (Negative)
[2018-06-14 09:05] LABS: Albumin 4.3 g/dL (3.2-5.2); Albumin/Globulin Ratio 1.1 (1-3); BUN/Creatinine Ratio 10.3 (8-20); C Reactive Protein 7.75 mg/L (<8.01); Calcium 9.8 mg/dL (8.6-10.3); EGFR African American 98.7 (>60); EGFR Non-African American 81.6 (>60); Globulin 3.8 g/dL (2-4); Potassium 3.8 mmol/L (3.5-5.0); Total Bilirubin 0.6 mg/dL (0.2-1.0); Total Protein 8.1 g/dL (6.4-8.9)
[2018-06-14 09:08] LABS: Troponin I 0.01 ng/mL (<0.04)
[2018-06-14 09:09] LABS: CKMB ng/mL 2.6 ng/mL (0.6-6.3)
[2018-06-14 11:36] VITALS: BP 139/91
== END 2018-06-14 11:26 | disposition home or self-care (01) ==
LOC: ED 07:55
DX: J44.9 Chronic obstructive pulmonary disease, unspecified (principal); J45.901 Unspecified asthma with (acute) exacerbation; R00.0 Tachycardia, unspecified; I10 Essential (primary) hypertension; K21.9 Gastro-esophageal reflux disease without esophagitis; F17.290 Nicotine dependence, other tobacco product, uncomplicated
CPT/HCPCS: 36415; 71046; 80053; 81003; 81015; 82550; 82553; 83605; 83880; 84484; 85025; 86140; 87086; 93005; 96361; 96374; 99283; A9270-GY; J2930

== ENCOUNTER → 2018-09-12 08:22 | Day surgery (SDC) | payer BC ==
[~2018-09-12 08:22] MED LIST: ALBUTEROL 108 MCG IN PRN; Aspirin EC TAB* 81 MG TAB.EC PO SCH; Budesonide/Formote 80/4.5(NF) MDI INH SCH; CHLORTHALIDONE 12.5 MG PO SCH; Diazepam TAB(*) 5 MG ONE; Heparin 2 UNITS/ML IVPREMIX* 3,000 UNIT/1,500 ML BAG IV ONE; Heparin(*) 1000 UNIT/ML 10 ML VIAL CATH LAB IV ONE; Iohexol 350 (CONTRAST) 200 ML MDV IV ONE; Lidocaine 1% INJ* 10 MG/ML 30 ML SDV ONE; Metoprolol Succinate XL TAB* 25 MG PO SCH; Midazolam* 1 MG/ML 5 ML VIAL (5 MG) ONE; NS 0.9% 1000 ML** 1,000 ML IV SCH; Nitroglycerin TAB 0.4 MG* 0.4 MG TAB SL PRN; Ramipril CAP* 2.5 MG PO SCH; VERAPAMIL 2.5 MG/ML 2 ML VIAL ** 5 mg/2 ml ONE; amLODIPine TAB* 5 MG PO SCH; diPHENhydraMINE IV* 50 MG/ML 1 ml VIAL (BENADRYL) ONE; diPHENhydraMINE PO* 25 MG ONE; fentaNYL* 50 MCG/ML 2 ML VIAL (100 MCG VIAL) ONE; nitroGLYCERIN DRIP* 25,000 MCG/250 ML BTL ONE
[2018-09-12 13:24] VITALS: BP 132/81
--- NOTE | 2018-09-15 08:17 | CATH ---
"*[facility]* [place] [address] Main: [phone] [email or web address] Cardiac Catheterization Patient: Jhonny Alejo : 1965 Study Date: 09/12/2018 Age: 53 Gender: M HR: Height: 73 in /185.4 cm BSA: 2.75 m^2 Weight: 309.3 lb /140.6 kg BMI: 40.9 kg/m^2 Checkroom Chief: Dmitry Pineda MD Ordering Physician: Wendy Perdue MD Referring Physician: Wendy Perdue MD, Qutaybeh - Left coronary angiography. - Right coronary angiography. - Left heart catheterization with angiography. Summary: 1. Left ventricle: Systolic function is mildly reduced. The estimated ejection fraction is 45%. Wall motion is normal; there are no regional wall motion abnormalities. 2. No significant coronary artery disease Mild left ventricle systolic dysfuncion - ejection fraction grossly estimated at 45%. Recommendations: The patient will follow up with his primary family caseworker, Dr. Perdue who was notified of these results for ongoing management of is non-ischemic cardiomyopathy. I emphasized compliance with alcohol cessation. Indications: Cardiomyopathy. History: Pain. Cardiomyopathy-worsening of LVEF and abnormal strss echocardiogram. Risk factors: Hypertension. Dyslipidemia. Family history is significant for coronary artery disease. Medications: The patient received antianginal therapy in the last two weeks, including: calcium channel blockers. Labs, prior tests, procedures, and surgery: Stress test. Abnormal. Stress echocardiography. Abnormal. Blood tests: International normalized ratio (INR) of 1.02. Partial thromboplastin time (PTT) of 32.9 sec. Serum potassium (K) of 3.7 mEq/l. Serum sodium (Na) of 140 mEq/l. Serum creatinine (current admission) of 1.17 mg/dl. Blood urea nitrogen of 15 mg/dl. Glucose of 96 mg/dl. Platelet count of 228 th/ul. White blood cell count (WBC) of 0.01 th/ul. Red blood cell count (RBC) of 4850 th/ul. Hematocrit of 45 %. Hemoglobin (pre-procedure) of 15.7 g/dl. Study data: Study status: Cardiac cath: elective. Location: Catheterization laboratory. Consent: The risks, benefits, and alternatives to the procedure were explained to the patient and/or their healthcare field marketing representative and written informed consent was obtained. All available pre-procedure labs were reviewed. Height: 185.4 cm. 73 in. Weight: 140.6 kg. 309.3 lb. Body surface area: 2.75 m^2. Body mass index: 40.9 kg/m^2. Procedure: 1. Initial setup. The patient was brought to the laboratory. Surface ECG leads, blood pressure measurements, and pulse oximetric signals were monitored. A baseline seven lead ECG was recorded. A time out was observed per protocol. 2. Skin preparation. The planned puncture sites were prepped and draped in the usual sterile manner. 3. Local anesthesia. 1% lidocaine (2 ml) was administered. 4. Supplemental oxygen. Oxygen, 2 L/min was administered throughout the procedure. 5. Right radial artery access. A 6F Glidesheath Slender sheath was advanced into the vessel. 6. Selective left coronary angiography. A 5F TIG 4.0 catheter was advanced into the left coronary vessel ostium under fluoroscopic guidance. Contrast was injected. Images were obtained in multiple projections. 7. Selective right coronary angiography. A 5F TIG 4.0 catheter was advanced into the right coronary vessel ostium under fluoroscopic guidance. Contrast was injected. Images were obtained in multiple projections. 8. Left heart catheterization with angiography. A 5F PIG Short Radial catheter was advanced across the aortic valve to the left ventricle under fluoroscopic guidance. 28 ml of contrast was injected at 14 ml/s. 9. Right radial artery hemostasis. Vessel closure was achieved with a Long Vasc Band device. Hemostasis was successfully obtained. Study completion: Minimal estimated blood loss. All catheters inserted during the procedure were removed. There were no apparent complications. Administered medications: VALIUM (Diazepam), 5mg, PO. BENADRYL (Diphenhydramine), 25mg, PO. Aspirin, 81mg, PO. (Radial) Nitroglycerin, 300mcg, intra-arterially. (Radial) Verapamil, 3mg, intra-arterially. (Radial) Heparin, 3,000units, intra-arterially. Heparin, 1,000units, IV. BENADRYL (Diphenhydramine), 12.5mg, IV. NaCl 0.9% , infusion , at a rate of 100 ml/hr. Contrast: Omnipaque 350 80 ml (total dose). Omnipaque 350 120 ml (wasted). Radiation: Fluoroscopy dose: 158.7 cGy. Discharge: The patient tolerated the procedure well and was discharged from the lab in stable condition. Findings Coronary arteries: The coronary circulation is right dominant. The left anterior descending gives rise to 4 diagonals. The left circumflex gives rise to 3 obtuse marginals. The right coronary gives rise to the posterior descending artery, 2 RV marginals, and 2 posterolaterals. Left main: Normal, 0% stenosis. LAD: Normal, no significant stenosis. Left circumflex: Normal, no significant stenosis. Right coronary: Normal, no significant stenosis. Left ventricle: Systolic function is mildly reduced. The estimated ejection fraction is 45%. Wall motion is normal; there are no regional wall motion abnormalities. Hemodynamics: + + + |Stage description |Condition 1 - | + + + |LV pressure s/d, ed |130/10, 22, dP/ft=1460 mm Hg/s| + + + |Arterial pressure s/d (m)|121/80 (100) | + + + Prepared and electronically signed by Dmitry Pineda MD 09/15/2018 08:16"
== END | disposition home or self-care (01) ==
LOC: CHICATH 08:22
PROVIDERS: ATTEND Internal Medicine Cardiovascular Disease
DX: I42.9 Cardiomyopathy, unspecified (principal); R94.39 Abnormal result of other cardiovascular function study; I10 Essential (primary) hypertension; E78.5 Hyperlipidemia, unspecified; Z82.49 Family history of ischemic heart disease and other diseases of the circulatory system; R06.02 Shortness of breath; Z87.891 Personal history of nicotine dependence; E66.01 Morbid (severe) obesity due to excess calories; G47.30 Sleep apnea, unspecified; F10.10 Alcohol abuse, uncomplicated
CPT/HCPCS: 76937; 93458; A9270-GY; J1200; J1644; J2250; J3010

== ENCOUNTER 2019-02-19 04:26 | Emergency (ER) | payer BC ==
--- OUTSIDE RECORDS SUMMARY | 2019-02-19 04:35 | XMS REPORT | Continuity of Care Document ---
:1965 External Reference #:[id number] Author Name Daniela Contreras NP (transmitted by agent of provider Chasity Medina) Address [address] [address] Care Team Providers Name Role Phone Jono Cruz III, MD - Internal Care Team Information Drama Teacher Medicine Staci Mckenna MD - Cardiovascular Care Team Information Drama Teacher [phone] Disease Tristin Jeter MD - Cardiovascular Care Team Information Drama Teacher Disease [facility] - Care Team Information Drama Teacher Gastroenterology Problems Active Problems Provider Date Chest pain Jono Cruz M.D. Onset: 05/31/2011 Elevated blood-pressure reading without Jono Cruz M.D. Onset: 2011 diagnosis of hypertension Pure hypercholesterolemia Jono Cruz M.D. Onset: 05/31/2011 Asthma without status asthmaticus Jono Cruz M.D. Onset: 05/31/2011 Gastroesophageal reflux disease Jono Cruz M.D. Onset: 05/31/2012 Benign essential hypertension Tristin Jeter M.D. Onset: 12/13/2012 Obstructive sleep apnea syndrome Anna Way MD Onset: 10/04/[address] MD Onset: 10/04/2014 Cardiomyopathy, unspecified Julio Garcia MD, [facility], Onset: 09/19/2018 [facility] Social History Type Date Description Comments Sex Unknown Tobacco Use Start: Unknown light smoker only; began age 21 Tobacco Use Start: Unknown End: Former Cigarette Smoker Quit in his 30s Unknown Smoking Status Reviewed: 11/20/18 Former Cigarette Smoker Quit in his 30s Smokeless Tobacco Current Smokeless Tobacco User, Uses 4 Times Daily ETOH Use Currently consumes alcohol Tobacco Use Start: Unknown End: Patient is a former Unknown smoker Recreational Drug Use Denies Drug Use Exercise Type/Frequency Exercises rarely outside of working Allergies, Adverse Reactions, Alerts Description No Known Drug Allergies Medications Active Medications SIG Qnty Indications Ordering Date Provider Lisinopril 1 by mouth every 30tabs I42.9 [facility], 12/14/2018 10mg day [employer] Tablets Blood Pressure take bp 1-2x 1units [facility], 10/16/2018 Monitor Automatic daily [employer] With Large Cuff Kit Toprol XL 1/2 tablet by 90tabs I42.9 [facility], 09/26/2018 50mg mouth once a day [employer] Tablets ER 24HR Lasix take 1 tablet by 30tabs I42.9 Qutaybeh S. 09/26/2018 40mg Tablets mouth daily Mario Perdue Potassium Chloride take 1 tablet by 30caps I42.9 Qutaybeh S. 09/26/2018 ER mouth daily Mario Perdue 10Meq Capsules ER Blood Pressure large cuff bp 1units I10 Jono Grady 02/16/2017 Monitor machine for home Mraio Cruz Digital/Manual bp monitoring Inflate Misc Proair HFA Inhale Two Puffs 8.5units Jono Grady 02/16/2017 By Mouth Four Mario Cruz 108(90Base) mcg/Act Times A Day as Aerosol Needed Symbicort Inhale Two Puffs 20.4units J45.909 Celeste 06/02/2015 By Mouth Twice A Mario Bunch 80-4.5mcg/Act Day Aerosol History Medications Lisinopril 2 by mouth every 90tabs I42.9 Daniela Contreras, 09/26/2018 - 5mg day [employer] 12/14/2018 Tablets Ramipril 1 by mouth every 90caps I42.9 Jono Grady 08/25/2018 - 2.5mg day Mario Cruz 09/26/2018 Capsules Nitrostat 1 tab sublingual 25tabs I42.9 Jono Grady 08/25/2018 - 0.4mg every 5 minutes as Mario Cruz 09/26/2018 Tablets Sub needed for chest pain Amlodipine Besylate 1 by mouth every 90tabs I10 Jono Grady 07/19/2018 - day Mario Cruz 09/26/2018 10mg Tablets Immunizations CPT Code Status Date Vaccine Lot # [id number] Given 01/17/2018 Influenza Virus Vaccine, Quadrivalent, Split, Preservative Free 82388 Given 09/26/2017 Tdap - Tetanus/Diptheria/Acellular Pertussis [id number] 04460 Given 12/22/2016 Influenza Virus Vaccine, Quadrivalent, Split, Preservative Free 19941 Given 12/28/2012 Flu Vaccine Split Virus Preservative Free For [id number] Indiv 3Yr Older 18080 Given 06/10/2011 Pneumonia Vaccine [id number] 93753 Given 06/10/2011 Influenza Virus 3Yrs & Over [id number] 49878 Given 12/16/2009 Influenza Virus 3Yrs & Over [id number] 37862 Given 05/26/2007 Tdap - Tetanus/Diptheria/Acellular Pertussis 42975 Given 05/26/2007 Tdap - Tetanus/Diptheria/Acellular Pertussis Vital Signs Date Vital Result Comment 11/20/2018 3:39pm Height 73 inches 6'1" Weight 308.00 lb with shoes Heart Rate 82 /min left radial regulaar BP Systolic Sitting 120 mmHg ule lg cuff BP Diastolic Sitting 78 mmHg ule lg cuff BP Systolic Standing 118 mmHg ule lg cuff BP Diastolic Standing 78 mmHg ule lg cuff BMI (Body Mass Index) 40.6 kg/m2 Ejection Fraction 50-55% cl% Echo 09/01/18 10/16/2018 2:52pm Height 73 inches 6'1" Weight 309.00 lb BP Systolic 126 mmHg BP Diastolic 78 mmHg BP Systolic Sitting 126 mmHg BP Diastolic Sitting 86 mmHg BMI (Body Mass Index) 40.8 kg/m2 Ejection Fraction 50-55% Results Test Date Facility Test Result H/L Range Note Iron & Iron Binding 10/16/2018 [facility] Iron 151 g/dL Normal 50-[address] [place] [address] [phone] Unsaturated Iron Binding < 293 g/dL Total Iron Binding Capacity 308 g/dL Normal 250-450 Transferrin 220 mg/dL Normal 203-362 % Iron Saturation 49 % Normal 15-55 Inr/Protime 10/16/2018 [facility] Inr 1.04 Normal 0.82-1.[address] [place] [address] [phone] Comp Metabolic 10/16/2018 [facility] Sodium 139 mmol/L Normal 135-[address] [place] [address] [phone] Potassium 4.1 mmol/L Normal 3.5-5.0 Chloride 105 mmol/L Normal 101-111 Co2 Carbon Dioxide 26 mmol/L Normal 22-32 Anion Gap 8 mmol/L Normal 2-11 Glucose 114 mg/dL High 70-100 Blood Urea Nitrogen 10 mg/dL Normal 6-24 Creatinine 1.03 mg/dL Normal 0.67-1.17 BUN/Creatinine Ratio 9.7 Normal 8-20 Calcium 9.3 mg/dL Normal 8.6-10.3 Total Protein 6.9 g/dL Normal 6.4-8.9 Albumin 3.9 g/dL Normal 3.2-5.2 Globulin 3.0 g/dL Normal 2-4 Albumin/Globulin Ratio 1.3 Normal 1-3 Total Bilirubin 0.50 mg/dL Normal 0.2-1.0 Alkaline Phosphatase 57 U/L Normal 34-104 Alt 21 U/L Normal 7-52 Ast 17 U/L Normal 13-39 Egfr Non- 76.1 >60 Egfr 92.1 >60 2 Laboratory 10/16/2018 [facility] TSH (Thyroid 0.77 Normal 0.34 -5.[address] Stim Horm) mcIU/[place] [address] [phone] T3 Free 4.10 pg/mL High 2.5-3.9 4 Free T4 (Free Thyroxine) 0.78 ng/dL Normal 0.61-1.12 5 Ferritin 282.8 ng/mL Normal 24-336 6 Transferrin 224 mg/dL Normal 203-362 7 CBC Auto 09/11/2018 [facility] White Blood 7.7 10^3/uL Normal 3.5-10.8 [place] [address] [phone] Red Blood Count 4.85 10^6/uL Normal 4.18-5.48 Hemoglobin 15.7 g/dL Normal 14.0-18.0 Hematocrit 45 % Normal 42-52 Mean Corpuscular Volume 93 fL Normal 80-94 Mean Corpuscular Hemoglobin 32 pg High 27-31 Mean Corpuscular HGB Conc 35 g/dL Normal 31-36 Red Cell Distribution Width 13 % Normal 10-15 Platelet Count 228 10^3/uL Normal 150-450 Mean Platelet Volume 8.1 fL Normal 7.4-10.4 Abs Neutrophils 5.8 10^3/uL Normal 1.5-7.7 Abs Lymphocytes 1.2 10^3/uL Normal 1.0-4.8 Abs Monocytes 0.7 10^3/uL Normal 0-0.8 Abs Eosinophils 0.1 10^3/uL Normal 0-0.6 Abs Basophils 0.0 10^3/uL Normal 0-0.2 Abs Nucleated RBC 0.0 10^3/uL Granulocyte % 75.1 % Lymphocyte % 15.0 % Monocyte % 8.5 % Eosinophil % 0.8 % Basophil % 0.6 % Nucleated Red Blood Cells % 0.1 Inr/Protime 09/11/2018 [facility] Inr 1.02 Normal 0.82-1.09 [address] [place] [address] [phone] Laboratory test 09/11/2018 [facility] Partial 32.9 Normal 26.0 -38.[address] [place] [address] Time PTT [phone] Basic Metabolic 09/11/2018 [facility] Sodium 140 mmol/L Normal 135-[address] [place] [address] [phone] Potassium 3.7 mmol/L Normal 3.5-5.0 Chloride 103 mmol/L Normal 101-111 Co2 Carbon Dioxide 26 mmol/L Normal 22-32 Anion Gap 11 mmol/L Normal 2-11 Glucose 96 mg/dL Normal 70-100 Blood Urea Nitrogen 15 mg/dL Normal 6-24 Creatinine 1.17 mg/dL Normal 0.67-1.17 BUN/Creatinine Ratio 12.8 Normal 8-20 Calcium 9.9 mg/dL Normal 8.6-10.3 Egfr Non- 65.7 >60 Egfr 79.5 >60 9 Cath Panel 08/31/2018 [facility] Partial Thrombo Time <pending> [address] [place] [address] [phone] Order 08/17/2018 [facility] Stress Test, <pending> [address] Treadmill, [place] [address] Imaging [phone] Lipid Profile 07/11/2018 [facility] Triglycerides 80 mg/dL 10 (Trig/Chol/HDL) [address] [place] [address] [phone] Cholesterol 247 mg/dL 11 HDL Cholesterol 78.3 mg/dL 12 LDL Cholesterol 153 mg/dL 13 1 Standard intensity warfarin therapeutic range: 2.0-3.0 High intensity warfarin therapeutic range: 2.5-3.5 2 Because ethnic data is not always readily [...] 15-29 5 Kidney failure <15 (or dialysis) 3 Copy Result to: JONO CRUZ ([id number]) 4 Copy Result to: JONO CRUZ ([id number]) 5 Copy Result to: JONO CRUZ ([id number]) 6 Copy Result to: JONO CRUZ ([id number]) 7 Copy Result to: JONO CRUZ ([id number]) 8 Standard intensity warfarin therapeutic range: 2.0-3.0 High intensity warfarin therapeutic range: 2.5-3.5 9 Because ethnic data is not always readily [...] 15-29 5 Kidney failure <15 (or dialysis) 10 Desirable: <150 Borderline High: 150-199 High: 200-499 Very High: >500 11 Desirable: <200 Borderline High: 200-239 High: >239 12 Low: <40 Desirable: 40-60 High: >60 13 Desirable: <100 Near Optimal: 100-129 Borderline High: 130-159 High: 160-189 Very High: >189 Procedures Date Code Description Status 09/12/2018 24150 Left Heart Cath. Incl S/I Coronaries, Angio S/I V Gram Completed If Done 09/04/2018 31619 Holter Monitor Review (24 hr)dr review & interp only Completed 09/01/2018 65489 ECHO Transthoracic, Real-Time 2D With Doppler And Color Completed Flow 09/01/2018 90492 ECHO Transthoracic, Real-Time 2D With Doppler And Color Completed Flow 09/01/2018 29756 ECG Monitor/Recording W/Visual Superimposition Scanning Completed 08/31/2018 25544 EKG Tracing & Interpretation Completed 08/17/2018 54528 ECHO Stress Test Incl Perf Contiuous ekg Monitoring Completed W/Phys Superv 04/07/2017 [id number] Colonoscopy Completed Medical Devices Description No Information Available Encounters Type Date Location Provider Dx Diagnosis Office Visit 11/20/2018 [facility] Daniela Contreras NP I10 Essential (primary) 3:30p hypertension G47.33 Obstructive sleep apnea (adult) (pediatric) F10.10 Alcohol abuse, uncomplicated Office Visit 10/16/2018 3:30p [facility] Daniela Contreras, I10 Essential (primary) Of [employer] hypertension G47.33 Obstructive sleep apnea (adult) (pediatric) I42.9 Cardiomyopathy, unspecified F10.10 Alcohol abuse, uncomplicated Office Visit 10/02/2018 3:30p [facility] Nurse Visit I10 Essential (primary) Of [facility] IC hypertension Office Visit 09/26/2018 3:30p [facility] Daniela K76.9 Liver disease, Of [facility] JAYDA Contreras unspecified I42.9 Cardiomyopathy, unspecified I10 Essential (primary) hypertension G47.33 Obstructive sleep apnea (adult) (pediatric) F10.10 Alcohol abuse, uncomplicated Office Visit 09/19/2018 [place] Julio Molina I42.9 Cardiomyopathy, 3:20p Cardiology Of MD Jose, unspecified [employer] [facility] [place] I10 Essential (primary) hypertension Office Visit 08/31/2018 [place] Wendy Mustafa I42.9 Cardiomyopathy, 1:40p Cardiology Of Mario Perdue unspecified [facility] I10 Essential (primary) hypertension G47.33 Obstructive sleep apnea (adult) (pediatric) R06.00 Dyspnea, unspecified E78.00 Pure hypercholesterolemia, unspecified E66.9 Obesity, unspecified R00.2 Palpitations R94.31 Abnormal electrocardiogram [ECG] [EKG] Office Visit 08/25/2018 10:00a [facility] Internal Jono Grady I42.9 Cardiomyopathy , Medicine - Mario Cruz unspecified [facility] I10 Essential (primary) hypertension G47.33 Obstructive sleep apnea (adult) (pediatric) Office Visit 07/19/2018 10:20a [facility] Internal Jono Grady Z00.00 Encntr for Medicine - Aleksandra Crzu M.D. general adult medical exam w/o abnormal findings I10 Essential (primary) hypertension G47.33 Obstructive sleep apnea (adult) (pediatric) J45.909 Unspecified asthma, uncomplicated R06.00 Dyspnea, unspecified R94.5 Abnormal results of liver function studies R00.2 Palpitations E78.00 Pure hypercholesterolemia, unspecified Assessments Date Code Description Provider 01/05/2019 I10 Essential (primary) hypertension Daniela Contreras NP 01/05/2019 I42.9 Cardiomyopathy, unspecified Daniela Contreras NP 01/05/2019 F10.10 Alcohol abuse, uncomplicated Daniela Contreras NP 01/05/2019 E78.5 Hyperlipidemia, unspecified Daniela Contreras NP 11/20/2018 I10 Essential (primary) hypertension Daniela Thuman, [employer] 11/20/2018 G47.33 Obstructive sleep apnea (adult) Daniela Thuman, [employer] (pediatric) 11/20/2018 F10.10 Alcohol abuse, uncomplicated Daniela Thuman, [employer] 10/16/2018 I10 Essential (primary) hypertension Daniela Thuman, [employer] 10/16/2018 G47.33 Obstructive sleep apnea (adult) Daniela Thuman, [employer] (pediatric) 10/16/2018 I42.9 Cardiomyopathy, unspecified Daniela Thuman, [employer] 10/16/2018 F10.10 Alcohol abuse, uncomplicated Daniela Thuman, [employer] 10/02/2018 I10 Essential (primary) hypertension Nurse Visit IC 09/26/2018 K76.9 Liver disease, unspecified Daniela Thuman, [employer] 09/26/2018 I42.9 Cardiomyopathy, unspecified Daniela Thuman, [employer] 09/26/2018 I10 Essential (primary) hypertension Daniela Thuman, [employer] 09/26/2018 G47.33 Obstructive sleep apnea (adult) Daniela Contreras, JAYDA (pediatric) 09/26/2018 F10.10 Alcohol abuse, uncomplicated Daniela Thuman, [employer] 09/19/2018 I42.9 Cardiomyopathy, unspecified Julio Garcia MD, [facility], [facility] 09/19/2018 I10 Essential (primary) hypertension Julio Garcia MD, [facility] [facility] 09/12/2018 I42.9 Cardiomyopathy, unspecified Dmitry Pineda M.D., [facility] [facility] 09/04/2018 R00.2 Palpitations Wendy Perdue M.D. 09/01/2018 I42.9 Cardiomyopathy, unspecified Wendy Perdue M.D. 09/01/2018 R00.2 Palpitations Nurse Visit IC 09/01/2018 I42.9 Cardiomyopathy, unspecified Traveling ECHO 2 09/01/2018 I10 Essential (primary) hypertension Traveling ECHO 2 09/01/2018 G47.33 Obstructive sleep apnea (adult) Traveling ECHO 2 (pediatric) 09/01/2018 R06.00 Dyspnea, unspecified Traveling ECHO 2 09/01/2018 R00.2 Palpitations Traveling ECHO 2 08/31/2018 I42.9 Cardiomyopathy Wendy Perdue M.D. 08/31/2018 I10 Essential (primary) hypertension Wnedy Perdue M.D. 08/31/2018 G47.33 Obstructive sleep apnea (adult) Wendy Predue M.D. (pediatric) 08/31/2018 R06.00 Dyspnea, unspecified Wendy Perdue M.D. 08/31/2018 E78.00 Pure hypercholesterolemia, Wendy Perdue M.D. unspecified 08/31/2018 E66.9 Obesity, unspecified Wendy Perude M.D. 08/31/2018 R00.2 Palpitations Wendy Perdue M.D. 08/31/2018 R94.31 Abnormal electrocardiogram [ECG] Wendy Perdue M.D. [EKG] 08/25/2018 I42.9 Cardiomyopathy Jono Cruz M.D. 08/25/2018 I10 Essential (primary) hypertension Jono Cruz M.D. 08/25/2018 G47.33 Obstructive sleep apnea (adult) Jono Cruz M.D. (pediatric) 08/17/2018 R06.00 Dyspnea, unspecified Gonzalo Hill M.D. 08/17/2018 I10 Essential (primary) hypertension Gonzalo Hill M.D. 08/17/2018 I42.9 Cardiomyopathy Gonzalo Hill M.D. 07/19/2018 Z00.00 Encounter for general adult medical Jono Cruz M.D. examination without abno 07/19/2018 I10 Essential (primary) hypertension Jono Cruz M.D. 07/19/2018 G47.33 Obstructive sleep apnea (adult) Jono Cruz M.D. (pediatric) 07/19/2018 J45.909 Unspecified asthma, uncomplicated Jono Cruz M.D. 07/19/2018 R06.00 Dyspnea, unspecified Jono Cruz M.D. 07/19/2018 R94.5 Abnormal results of liver function Jono Cruz M.D. studies 07/19/2018 R00.2 Palpitations Jono Cruz M.D. 07/19/2018 E78.00 Pure hypercholesterolemia, Jono Cruz M.D. unspecified Plan of Treatment Future Appointment(s):02/26/2019 2:30 pm - Daniela Contreras NP at [facility]01/05/2019 - Daniela Contreras NPI10 Essential (primary) [id number] Cardiomyopathy, unspecifiedFollow up:follow up with me Daniela Contreras [facility] mid February Follow up with Sergio in 4-5 months.Recommendations: Reduce Lisinopril to 5mg by mouth daily increase Metoprolol to 50mg by mouth daily Check BP and HR call me if HR is < 50 or you notice low BP or symptoms of low blood pressure ( dizziness, lightheadedness, excessive fatigue.F10.10 Alcohol abuse, [id number] Hyperlipidemia, unspecified Functional Status Description No Information Available Mental Status Description No Information Available Referrals Refer to Reason for Referral Status Appt Date [facility] [place] [facility] [address] [place] [address] [phone] Wendy Perdue MD [facility] New exertional dyspnea sx over the past Sent 2 months. stress echo with reduced EF at rest, decreased with some regional wall motion asymmetry with exercise. No ischemic EKG changes. (+) hx sleep apnea, HTN, heavier alcohol intake, former smoker [address] [facility] [address] [place] [address] [phone]
[2019-02-19] MEDS ORDERED: predniSONE TAB* 50 MG PO ONE (06:03)
[2019-02-19] MEDS ORDERED: Ibuprofen TAB* 600 MG PO ONE (06:03)
[2019-02-19] MEDS ORDERED: Ketorolac *IM* INJ* 60 MG/2 ML VIAL IM ONE (06:06)
[2019-02-19] MEDS ORDERED: methylPREDNISolone 125 MG* 2 ML VIAL IM ONE (06:06)
[2019-02-19] MEDS ORDERED: methylPREDNISolone 125 MG* 2 ML VIAL IV ONE (06:10)
[2019-02-19] MEDS ORDERED: Ketorolac INJ* 30 MG/ML 1 ML VIAL IV ONE (06:10)
[2019-02-19] MEDS ORDERED: Lidocaine 2% VISCOUS* 15 ML UDC SWISH SPIT ONE (06:10)
--- NOTE | 2019-02-19 06:34 | ED ---
Throat Pain/Nasal Congestion - HPI Summary HPI Summary: Patient is a 53-year-old male with history of cardiomyopathy and asthma presenting to the ED with right-sided tonsillar swelling, deep breathing and swallowing since yesterday morning. He states symptoms began with a sore throat and increased to R sided throat pain and dysphagia. Denies other symptoms. Denies fevers, sweats or chills. Denies having this in the past. Pt is currently on lisinopril x several years, but denies any lip or tongue swelling. States feels "dry" to the R side of the neck. Patient states he feels the pain is worsening and concerned with his breathing and swallowing. States he is able to continue to breath OK at this time, however as it is becoming more increasingly difficult to swallow, he was concerned to breathing difficulty. Does have a hx of asthma and uses albuterol inhalers at home. Not worse with recumbent position or hoarse voice. - History of Current Complaint Chief Complaint: EDThroatPain Time Seen by Provider: 02/19/19 05:47 Hx Obtained From: Patient Onset/Duration: Gradual Onset Severity: Worse Since: - this morning Associated Signs And Symptoms: Positive: Dysphagia, FB Sensation - Epiglottits Risk Factors Epiglottis Risk Factors: Negative - Allergies/Home Medications Allergies/Adverse Reactions: Allergies Allergy/AdvReac Type Severity Reaction Status Date / Time No Known Allergies Allergy Verified 02/19/19 04:29 PMH/Surg Hx/FS Hx/Imm Hx Previously Healthy: Yes Endocrine/Hematology History: Denies: Hx Diabetes, Hx Thyroid Disease Cardiovascular History: Reports: Hx Hypertension Denies: Hx Angina, Hx Congestive Heart Failure, Hx Coronary Artery Disease Respiratory History: Reports: Hx Asthma Denies: Hx Chronic Obstructive Pulmonary Disease (COPD) GI History: Reports: Hx Gastroesophageal Reflux Disease, Hx Hiatal Hernia Denies: Hx Ulcer History: Denies: Hx Renal Disease Sensory History: Reports: Hx Contacts or Glasses Denies: Hx Hearing Aid Opthamlomology History: Reports: Hx Contacts or Glasses Psychiatric History: Reports: Hx Anxiety - Surgical History Surgery Procedure, Year, and Place: appedectomy - Immunization History Hx Pertussis Vaccination: No Immunizations Up to Date: Yes Infectious Disease History: No Infectious Disease History: Denies: Hx Hepatitis, Hx Human Immunodeficiency Virus (HIV), History Other Infectious Disease, Traveled Outside the [place] in Last 30 Days - Family History Known Family History: Positive: Hypertension, Respiratory Disease - emphysema - Social History Occupation: Employed Full-time Lives: With Family Alcohol Use: Daily Alcohol Amount: states "a lot" Hx Substance Use: No Substance Use Type: Reports: None Hx Tobacco Use: Yes Smoking Status (MU): Former Smoker Type: Smokeless Tobacco Amount Used/How Often: 1 CAN/DAY Length of Time of Smoking/Using Tobacco: 32 YEARS Have You Smoked in the Last Year: Yes - CHEWING TOBACCO Review of Systems Negative: Fever, Chills, Fatigue, Skin Diaphoresis Positive: Sore Throat - + right sided anterior neck pain Negative: Palpitations, Chest Pain Negative: Shortness Of Breath, Cough Negative: Arthralgia, Myalgia Skin: Negative All Other Systems Reviewed And Are Negative: Yes Physical Exam Triage Information Reviewed: Yes Vital Signs On Initial Exam: Initial Vitals Temp Pulse Resp BP Pulse Ox 98.1 F 101 15 136/90 97 02/19/19 04:27 02/19/19 04:27 02/19/19 04:27 02/19/19 04:27 02/19/19 04:27 Vital Signs Reviewed: Yes Appearance: Positive: Well-Appearing, Well-Nourished Skin: Positive: Warm, Skin Color Reflects Adequate Perfusion Head/Face: Positive: Normal Head/Face Inspection Eyes: Positive: EOMI, Conjunctiva Clear ENT: Positive: Hearing grossly normal, Pharyngeal erythema, Tonsillar swelling - bilateral, mild, Uvula midline. Negative: Tonsillar exudate, Trismus, Muffled voice, Hoarse voice, Dental tenderness, Sinus tenderness Neck: Positive: Supple, No Lymphadenopathy, Enlarged Nodes @ - right sided - mild cervical anterior, no posterior LN Respiratory/Lung Sounds: Positive: Breath Sounds Present Cardiovascular: Positive: RRR, Pulses are Symmetrical in both Upper and Lower Extremities Musculoskeletal: Positive: Strength/ROM Intact Neurological: Positive: Sensory/Motor Intact, Alert, Oriented to Person Place, Time Psychiatric: Positive: Normal, Affect/Mood Appropriate AVPU Assessment: Alert Procedures - Sedation Patient Received Moderate/Deep Sedation with Procedure: No Diagnostics - Vital Signs Vital Signs Temp Pulse Resp BP Pulse Ox 02/19/19 04:27 98.1 F 101 15 136/90 97 - Laboratory Lab Statement: Any lab studies that have been ordered have been reviewed, and results considered in the medical decision making process. EENT Course/Dx - Course Course Of Treatment: During course of treatment, the patient is evaluated for a sensation of a foreign body/right sided throat and cervical anterior neck pain. He has never had this in the past. He does have a history of asthma and uses albuterol inhalers. He denies any difficulty with breathing, however does endorse some difficulty with swallowing. He denies getting anything stuck in the throat. He states symptoms began with a sore throat 2 days ago and has been progressively getting worse. A strep swab obtained and is positive. Soft tissue neck x-ray ordered from waiting room as pt had symptoms of FB. This shows no obvious pharyngeal swelling or evidence of foreign body or bolus. IV access obtained and patient is given methylprednisolone and Toradol. Patient appears well otherwise and appears to be in no acute distress. Lungs CTA, RRR. Patient is in no acute respiratory distress. Posterior pharyngeal erythema. Patchy tonsillar exudates and prominent tender, anterior cervical LAD. No palatal petechiae or rash. No evidence of strawberry tongue. No evidence of muffled voice, hoarseness, drooling or inability to tolerate saliva. No stridor , or tripod positioning. No stiff neck, evidence of bulging of the pharyngeal wall. Uvula midline. No crepitus. Pt dx with strep throat, given penicillin x 10 days, first dose given in ED. Encouraged ibuprofen and cepacol for pain control. - Differential Diagnoses Differential Diagnoses: Other - sore throat, throat bolus/fb sensation - Diagnoses Provider Diagnoses: Strep throat Discharge ED - Sign-Out/Discharge Documenting (check all that apply): Patient Departure - Discharge Plan Condition: Stable Disposition: HOME Prescriptions: Penicillin VK TAB* [Penicillin VK 250 mg Tab*] 500 mg PO BID #19 tab Patient Education Materials: Strep Throat (ED) Referrals: Matias Cruz MD [Primary Care Provider] - Additional Instructions: Cepcaol tabs over the counter for throat discomfort - this has a numbing agent Penicillin twice daily x 10 days Please follow up as needed Strep Throat How can I manage my symptoms? Use lozenges, ice, soft foods, or popsicles to soothe your throat. Drink juice, milk shakes, or soup if your throat is too sore to eat solid food. Drinking liquids can also help prevent dehydration. Gargle with salt water. Mix teaspoon salt in a 1 cup of warm water and gargle. This may help reduce swelling in your throat. Do not smoke. Nicotine and other chemicals in cigarettes and cigars can cause lung damage and make your symptoms worse. Ask your healthcare provider for information if you currently smoke and need help to quit. E-cigarettes or smokeless tobacco still contain nicotine. Talk to your healthcare provider before you use these products. How do I prevent the spread of strep throat? Wash your hands often. Use soap and water. Wash your hands after you use the bathroom, change a child's diapers, or sneeze. Wash your hands before you prepare or eat food. Do not share food or drinks. Replace your toothbrush after you have taken antibiotics for 24 hours. - Billing Disposition and Condition Condition: STABLE Disposition: Home
[2019-02-19 06:43] LABS: Rapid Strep Molecular POSITIVE (Negative)
[2019-02-19] MEDS ORDERED: Penicillin VK LIQ* 250 MG/5 ML 100 ML BTL PO ONE (07:05)
[2019-02-19 07:38] VITALS: BP 108/57
== END 2019-02-19 07:38 | disposition home or self-care (01) ==
LOC: ED 04:26
DX: J02.0 Streptococcal pharyngitis (principal); I10 Essential (primary) hypertension; J45.909 Unspecified asthma, uncomplicated; K21.9 Gastro-esophageal reflux disease without esophagitis; F41.9 Anxiety disorder, unspecified; Z87.891 Personal history of nicotine dependence; Z90.89 Acquired absence of other organs
CPT/HCPCS: 70360; 87651; 96374; 96375; 99282; A9270-GY; J1885; J2930

== ENCOUNTER 2019-05-17 10:24 | Emergency (ER) | payer BC ==
[2019-05-17 13:15] LABS: Influenza A Molecular Negative (Negative); Influenza B Molecular Negative (Negative)
--- NOTE | 2019-05-17 13:22 | UC ---
Respiratory Complaint HPI - HPI Summary HPI Summary: 54 y/o male presents to the urgent care c/o Cough x 4 days, shortness of breath, fever. HX of CHF. Pitting edema to bilateral lower extremties - History of Current Complaint Chief Complaint: UCRespiratory Stated Complaint: FLU LIKE SYMPTOMS Time Seen by Provider: 05/17/19 13:21 Hx Obtained From: Patient Onset/Duration: Gradual Onset, Lasting Days - 4 daqys, Still Present, Worse Since - last night w/ low grade fever Timing: Intermittent Episodes Pain Intensity: 0 - Allergies/Home Medications Allergies/Adverse Reactions: Allergies Allergy/AdvReac Type Severity Reaction Status Date / Time No Known Allergies Allergy Verified 05/17/19 10:43 Home Medications: Home Medications Albuterol inh POWDER (NF) [Proair Respiclick] 108 mcg IN QID PRN 04/01/17 [ History Confirmed 05/17/19] Metoprolol Succinate XL TAB* [Toprol XL TAB*] 25 mg PO DAILY 09/12/18 [History Confirmed 05/17/19] Albuterol/Ipratropium NEB.KATERYNA* [Duoneb (Albuterol 2.5 MG/Ipratropium 0.5 MG)] 1 neb INH Q6H PRN #1 neb.kateryna 05/17/19 [Rx] Benzonatate CAP* [Tessalon 100 MG CAP*] 100 mg PO TID PRN #21 cap 05/17/19 [Rx] Furosemide TAB* [Lasix TAB*] 1 tab PO DAILY 05/17/19 [History Confirmed 05/17/19 ] Lisinopril TAB* [Prinivil TAB 5 MG*] 1 tab PO DAILY 05/17/19 [History Confirmed 05/17/19] Potassium Chlor TAB* [Klor Con ER TAB 10 MEQ*] 1 tab PO DAILY 05/17/19 [History Confirmed 05/17/19] PMH/Surg Hx/FS Hx/Imm Hx Previously Healthy: Yes Cardiovascular History: Hypertension, Congestive Heart Failure Respiratory History: Asthma - Surgical History Surgical History: Yes Surgery Procedure, Year, and Place: appedectomy - Family History Known Family History: Positive: Hypertension, Respiratory Disease - emphysema - Social History Occupation: Employed Full-time Lives: With Family Alcohol Use: Daily Alcohol Amount: states "a lot" Substance Use Type: None Smoking Status (MU): Former Smoker Type: Smokeless Tobacco Amount Used/How Often: 1 CAN/DAY Length of Time of Smoking/Using Tobacco: 32 YEARS Have You Smoked in the Last Year: Yes - CHEWING TOBACCO - Immunization History Most Recent Influenza Vaccination: fall 2012 Physical Exam - Summary Physical Exam Summary: Vital Signs Reviewed: Yes General: well developed, well nourished obese male sitting in the examining table w/o any apparent distress Eyes: Positive: Conjunctiva Clear - PERRLA, EOMI, fundi grossly normal ENT: Positive: Normal ENT inspection, Hearing grossly normal, Pharynx normal, Nasal congestion - edematous and erythematous nasal mucosa, Nasal drainage - yellowish drainage, TMs normal. Negative: Tonsillar swelling, Tonsillar exudate Neck: Positive: Supple, Nontender, No Lymphadenopathy Respiratory: no orthopnea or dyspnea. Able to speak in full sentences, no retractions or accessory muscle use, no tripod position, stridor, or head bobbing. Positive breath sounds bilaterally. diffuse scattered wheezing and rhonchi on b/L lungs, no crackles or rales. Cardiovascular: Positive: RRR, No Murmur, Pulses Normal, Brisk Capillary Refill Abdomen Description: Positive: Nontender, No Organomegaly, Soft. Negative: CVA Tenderness (R), CVA Tenderness (L) Bowel Sounds: Positive: Present Musculoskeletal Exam: Normal Musculoskeletal: Positive: Strength Intact, ROM Intact, No Edema Neurological Exam: Normal Psychological Exam: Normal Skin Exam: Normal Triage Information Reviewed: Yes Vital Signs: Initial Vital Signs Temp 99.1 F 05/17/19 10:47 Pulse 80 05/17/19 10:47 Resp 20 05/17/19 10:47 BP 152/92 05/17/19 10:47 Pulse Ox 97 05/17/19 10:47 Respiratory Course/Dx - Course Course Of Treatment: Pt w/diffuse scattered wheezing and rhonchi on b/L lungs, no crackles or rales. O2Sat: 98%. Pt given Ibuprofen PO and Duoneb Treatment to alleviate symptoms. Pt tolerated well treatment and lungs improved,and wheezing resolved. Chest X-ray ordered to r/o pneumonia: Impression: no acute cardiopulmonary disease observed. Pt w/ acute bronchitis. Patient prescribed Doxycycline PO, albuterol inhaler and Tessalon Tabs to alleviate symptoms as directed below. The patient was recommended to increase fluid intake. Take medications as recommended. Pt advised to return to the clinic or f/u w/ PCP if symptoms do not improve. All D/C instructions explained. Patient understood and agree w/ plan of care. Pt left clinic hemodynamically stable , A&OX3 - Differential Dx/Diagnosis Differential Diagnosis/HQI/PQRI: Asthma, Bronchitis, CHF, Pulmonary Edema, Influenza, Lower Resp Infection, Sinusitis, Other - penumonia Provider Diagnosis: Upper respiratory infection, Wheezing, Uncontrolled hypertension Discharge ED - Sign-Out/Discharge Documenting (check all that apply): Patient Departure - D/C home All imaging exams completed and their final reports reviewed: Yes - Discharge Plan Condition: Stable Disposition: HOME Prescriptions: Albuterol/Ipratropium NEB.KATERYNA* [Duoneb (Albuterol 2.5 MG/Ipratropium 0.5 MG)] 1 neb INH Q6H PRN #1 neb.kateryna PRN Reason: Wheezing Benzonatate CAP* [Tessalon 100 MG CAP*] 100 mg PO TID PRN #21 cap PRN Reason: Cough Patient Education Materials: Upper Respiratory Infection (ED) Referrals: Matias Cruz MD [Primary Care Provider] - 2 Days Additional Instructions: 1-Rapid strep: negative, Influenza A&B: negative. Chest X-ray: negative 2-Take Tessalon PO tabs or continue taking Coricidin PO as directed and use the Duo neb treatment to alleviate cough and wheezing. Increase fluid intake, rest and eat well. Stay home w/ symptomatic treatment until symptoms resolve. Take Vitamin C. 3- If symptoms do not improve or worsen or your develop SOB with fever and severe wheezing please go immediately to the ER further evaluation and treatment. Otherwise f/u w/ your PCP in 3 days if not improvement in your symptoms for further management in your asthma 4- Your BP is elevated today advised to decrease salt in diet, monitor BP and f/ u with PCP for further management. - Billing Disposition and Condition Condition: STABLE Disposition: Home
[2019-05-17 13:32] VITALS: BP 145/88
[2019-05-17] MEDS ORDERED: Albuterol/Ipratropium NEB.SOL* Albuterol 2.5 MG/Ipratropium 0.5 MG 3 ML INH ONE (14:19)
== END 2019-05-17 15:20 | disposition home or self-care (01) ==
LOC: UCEAST 10:24
DX: J06.9 Acute upper respiratory infection, unspecified (principal); R06.2 Wheezing; I10 Essential (primary) hypertension; J45.909 Unspecified asthma, uncomplicated; I50.9 Heart failure, unspecified; Z87.891 Personal history of nicotine dependence; Z79.899 Other long term (current) drug therapy
CPT/HCPCS: 71046; 87651; 99202; A9270-GY; G0463

== ENCOUNTER 2023-07-14 15:33 | Inpatient (IN) ==
[2023-07-14] MEDS ORDERED: Lorazepam PYXIS KEY PRN ×2 (15:46→16:51)
[2023-07-14] MEDS: Thiamine 100 MG/ML 2 ml VIAL (200 mg) IM ONE ×2 (16:02→18:09)
[2023-07-14] MEDS: LORazepam 2 mg VIAL 1 ml IV PUSH ONE ×2 (16:02→16:56)
[2023-07-14] MEDS: Multivitamins/Minerals TAB PO SCH (16:02)
[2023-07-14] MEDS: Lactated Ringers 1000 ml BAG 1,000 ML IV ONE ×2 (16:08→22:31)
[2023-07-14 16:33] LABS: High Sens Troponin Baseline 11 pg/mL (<20)
[2023-07-14 16:38] LABS: ABS Eosinophils 0.1 10^3/uL (0.0-0.5); ABS Lymphocytes 0.6 10^3/uL (1.0-4.8); ABS Monocytes 0.5 10^3/uL (0.0-1.1); ABS Neutrophils 3.1 10^3/uL (1.5-7.6); ABS Nucleated RBC 0.01 10^3/ul; Eosinophil % 3.2 %; Hematocrit 30.8 % (38-53); Hemoglobin 10.5 g/dL (13.2-16.3); Lymphocyte % 13.4 %; Mean Corpuscular Hemoglobin 34.3 pg (27-33); Mean Corpuscular Hgb Conc 34.2 g/dL (31-36); Mean Corpuscular Volume 100.3 fL (80-97); Nucleated Red Blood Cells % 0.3 %/100WBC (0.0-0.8); Platelet Count 65 10^3/uL (150-450); Red Blood Count 3.07 10^6/uL (4.06-5.63); Red Cell Distribution Width 14.3 % (12-17); White Blood Count 4.3 10^3/uL (3.6-10.2)
[2023-07-14 17:09] LABS: ALT 27 U/L (7-52); Albumin/Globulin Ratio 0.6 (1-3); Alkaline Phosphatase 80 U/L (35-149); Anion Gap 13 mmol/L (2-16); Blood Urea Nitrogen 13 mg/dL (6-24); CO2 Carbon Dioxide 28 mmol/L (22-32); Calcium 9.8 mg/dL (8.6-10.3); Chloride 91 mmol/L (101-111); Creatine Kinase 65 U/L (10-223); Creatinine, Serum 1.12 mg/dL (0.67-1.17); Globulin 4.7 g/dL (2-4); Glucose 125 mg/dL (70-100); Sodium 132 mmol/L (135-145); Total Bilirubin 5.6 mg/dL (0.2-1.0); Total Protein 7.7 g/dL (6.4-8.9); eGFR CKD-EPI 77.1 (>60)
[2023-07-14 17:39] LABS: Urine Appearance Turbid; Urine Bilirubin 2+ (Negative); Urine Blood Negative (Negative); Urine Glucose Negative (Negative); Urine Ketones Trace (Negative); Urine Nitrite Negative (Negative); Urine Protein 1+ (>=30 mg/dL) (Negative); Urine Specific Gravity 1.035 (1.002-1.030); Urine Urobilinogen 4+ (Negative)
[2023-07-14 17:50] LABS: Urine Bacteria Absent /HPF (Absent); Urine Red Blood Cell Trace(0-2/hpf) /HPF (0-Trace); Urine Squamous Epithelial Cell Present /HPF (Absent); Urine White Blood Cell Trace(0-5/hpf) /HPF (0-Trace)
[2023-07-14 17:50] LABS: Magnesium 1.1 mg/dL (1.9-2.7); Phosphorus 1.2 mg/dL (2.5-5.0); Potassium Redraw 2.9 mmol/L (3.5-5.0)
[2023-07-14 18:03] LABS: High Sensitivity Troponin 1 Hr 8 pg/mL (<20)
[2023-07-14 18:17] LABS: Urine Color Amber
[2023-07-14] MEDS: LORazepam 2 mg VIAL 1 ml IV PUSH SCH (18:30)
[2023-07-14] MEDS: Magnesium Sulf 4 GM/100 ML IV 4,000 MG/100 ML BAG IVPB ONE (18:31)
[2023-07-15] MEDS ORDERED: Albuterol HFA INHALER 8 gm MDI INH PRN (03:45)
[2023-07-15 04:33] LABS: INR 1.25 (0.83-1.13)
[2023-07-15 04:43] LABS: C Reactive Protein 9.34 mg/L (<8.01); Calcium 8.9 mg/dL (8.6-10.3); Creatinine, Serum 0.9 mg/dL (0.67-1.17); Magnesium 1.7 mg/dL (1.9-2.7); Potassium 2.8 mmol/L (3.5-5.0); eGFR CKD-EPI 100.2 (>60)
[2023-07-15 05:08] LABS: Folate 7.23 ng/mL (5.90-24.80)
[2023-07-15] MEDS: Magnesium Sulf 4 GM/100 ML IV 4,000 MG/100 ML BAG IVPB ONE (05:28)
[2023-07-15] MEDS: Potassium Chlor 20 meq TAB.ER PO ONE ×5 (05:34→20:56)
[2023-07-15 07:14] LABS: Albumin 2.6 g/dL (3.2-5.2); Albumin/Globulin Ratio 0.7 (1-3); Calcium 8.9 mg/dL (8.6-10.3); Creatinine, Serum 0.87 mg/dL (0.67-1.17); Globulin 3.9 g/dL (2-4); Potassium 2.9 mmol/L (3.5-5.0); Total Bilirubin 4.8 mg/dL (0.2-1.0); Total Protein 6.5 g/dL (6.4-8.9); eGFR CKD-EPI 101.3 (>60)
[2023-07-15 07:35] LABS: ABS Basophils 0.1 10^3/uL (0.0-0.1); ABS Eosinophils 0.2 10^3/uL (0.0-0.5); ABS Lymphocytes 0.6 10^3/uL (1.0-4.8); ABS Monocytes 0.5 10^3/uL (0.0-1.1); ABS Neutrophils 2.1 10^3/uL (1.5-7.6); ABS Nucleated RBC 0.01 10^3/ul; Eosinophil % 4.9 %; Hemoglobin 9.5 g/dL (13.2-16.3); Lymphocyte % 18.6 %; Mean Corpuscular Hemoglobin 34.3 pg (27-33); Mean Corpuscular Hgb Conc 33.8 g/dL (31-36); Mean Corpuscular Volume 101.5 fL (80-97); Mean Platelet Volume 8.6 fL (7.5-11.2); Nucleated Red Blood Cells % 0.4 %/100WBC (0.0-0.8); Platelet Count 63 10^3/uL (150-450); Red Blood Count 2.76 10^6/uL (4.06-5.63); Red Cell Distribution Width 14.4 % (12-17); White Blood Count 3.4 10^3/uL (3.6-10.2)
[2023-07-15] MEDS ORDERED: Multivitamins/Minerals TAB PO SCH (09:00)
[2023-07-15] MEDS: Enoxaparin 40 MG/0.4 ML SYR SUBCUT SCH (09:19)
[2023-07-15] MEDS: Mometasone/Formoter 100/5 MDI INH SCH (09:21)
[2023-07-15] MEDS ORDERED: Thiamine 100 MG/ML 2 ml VIAL 500 MG in NS 0.9% 250 ml 250 ML IV ONE (09:30)
[2023-07-15] MEDS: Potassium Phosphate IV 15 MMOL in NS 0.9% 250 ml 250 ML IVPB ONE (10:33)
[2023-07-15] MEDS ORDERED: Sulfur Hexaflouride MICROSPHR 25 MG VIAL ONE (10:36)
[2023-07-15] MEDS: Thiamine 100 MG/ML 2 ml VIAL 500 MG in NS 0.9% 250 ml 250 ML IV SCH (11:20)
[2023-07-15 15:40] LABS: Albumin 2.6 g/dL (3.2-5.2); Albumin/Globulin Ratio 0.7 (1-3); Calcium 8.9 mg/dL (8.6-10.3); Creatinine, Serum 0.86 mg/dL (0.67-1.17); Globulin 3.8 g/dL (2-4); Potassium 3.3 mmol/L (3.5-5.0); Total Bilirubin 4.8 mg/dL (0.2-1.0); Total Protein 6.4 g/dL (6.4-8.9); eGFR CKD-EPI 101.6 (>60)
[2023-07-15] MEDS: KCL 10 MEQ/50 ML IVPREMIX 10 MEQ/50 ML BAG IV SCH (18:04)
[2023-07-15] MEDS: Potassium Chloride LIQUID 20 MEQ/15 ML LIQUID PO ONE ×2 (18:08→18:20)
[2023-07-15] MEDS ORDERED: Potassium Chlor 20 meq TAB.ER PO ONE (20:00)
[2023-07-16 06:35] LABS: Albumin 2.7 g/dL (3.2-5.2); Albumin/Globulin Ratio 0.7 (1-3); Creatinine, Serum 0.98 mg/dL (0.67-1.17); Magnesium 1.6 mg/dL (1.9-2.7); Phosphorus 1.9 mg/dL (2.5-5.0); Potassium 3.7 mmol/L (3.5-5.0); Total Bilirubin 4.8 mg/dL (0.2-1.0); Total Protein 6.7 g/dL (6.4-8.9); eGFR CKD-EPI 90.5 (>60)
[2023-07-16] MEDS: Magnesium Sulf 4 GM/100 ML IV 4,000 MG/100 ML BAG IVPB ONE (08:20)
[2023-07-16] MEDS: Potassium & Sodium Phos 250 mg = 1 PACKET PO ONE ×2 (08:21→12:23)
[2023-07-16 08:52] LABS: ABS Basophils 0.1 10^3/uL (0.0-0.1); ABS Eosinophils 0.2 10^3/uL (0.0-0.5); ABS Lymphocytes 0.7 10^3/uL (1.0-4.8); ABS Monocytes 0.6 10^3/uL (0.0-1.1); ABS Neutrophils 2.2 10^3/uL (1.5-7.6); ABS Nucleated RBC 0.01 10^3/ul; Hematocrit 28.2 % (38-53); Hemoglobin 9.7 g/dL (13.2-16.3); Lymphocyte % 19.6 %; Mean Corpuscular Hemoglobin 34.5 pg (27-33); Mean Corpuscular Hgb Conc 34.4 g/dL (31-36); Mean Corpuscular Volume 100.3 fL (80-97); Mean Platelet Volume 8.7 fL (7.5-11.2); Nucleated Red Blood Cells % 0.4 %/100WBC (0.0-0.8); Platelet Count 92 10^3/uL (150-450); Red Blood Count 2.81 10^6/uL (4.06-5.63); Red Cell Distribution Width 14.8 % (12-17); White Blood Count 3.8 10^3/uL (3.6-10.2)
[2023-07-16 14:53] LABS: Calcium 9.5 mg/dL (8.6-10.3); Magnesium 2.3 mg/dL (1.9-2.7); Phosphorus 2.6 mg/dL (2.5-5.0); Potassium 4.5 mmol/L (3.5-5.0); eGFR CKD-EPI 88.3 (>60)
[2023-07-17 06:00] LABS: ABS Basophils 0.1 10^3/uL (0.0-0.1); ABS Eosinophils 0.1 10^3/uL (0.0-0.5); ABS Lymphocytes 0.6 10^3/uL (1.0-4.8); ABS Monocytes 0.8 10^3/uL (0.0-1.1); ABS Neutrophils 2.3 10^3/uL (1.5-7.6); ABS Nucleated RBC 0.01 10^3/ul; Eosinophil % 3.7 %; Hematocrit 28.4 % (38-53); Hemoglobin 9.7 g/dL (13.2-16.3); Lymphocyte % 15.9 %; Mean Corpuscular Hemoglobin 34.6 pg (27-33); Mean Corpuscular Hgb Conc 34.2 g/dL (31-36); Mean Platelet Volume 8.4 fL (7.5-11.2); Nucleated Red Blood Cells % 0.2 %/100WBC (0.0-0.8); Platelet Count 113 10^3/uL (150-450); Red Blood Count 2.81 10^6/uL (4.06-5.63); Red Cell Distribution Width 15.1 % (12-17); White Blood Count 3.9 10^3/uL (3.6-10.2)
[2023-07-17 06:11] LABS: Creatinine, Serum 0.93 mg/dL (0.67-1.17); Magnesium 1.7 mg/dL (1.9-2.7); Phosphorus 3.8 mg/dL (2.5-5.0); Potassium 4.1 mmol/L (3.5-5.0); eGFR CKD-EPI 96.4 (>60)
[2023-07-17] MEDS: Magnesium Sulfate 2 gm BAG 2 GM/50 ML BAG IVPB ONE (07:47)
[2023-07-17 18:30] LABS: Creatinine, Serum 0.88 mg/dL (0.67-1.17); Magnesium 1.9 mg/dL (1.9-2.7); Potassium 4.2 mmol/L (3.5-5.0); eGFR CKD-EPI 100.9 (>60)
[2023-07-18 06:33] LABS: Calcium 8.9 mg/dL (8.6-10.3); Creatinine, Serum 0.9 mg/dL (0.67-1.17); Magnesium 1.7 mg/dL (1.9-2.7); Phosphorus 4.4 mg/dL (2.5-5.0); Potassium 4.3 mmol/L (3.5-5.0); eGFR CKD-EPI 100.2 (>60)
[2023-07-18 06:57] LABS: Hematocrit 28.4 % (38-53); Hemoglobin 9.6 g/dL (13.2-16.3); Mean Corpuscular Hemoglobin 34.6 pg (27-33); Mean Corpuscular Hgb Conc 33.9 g/dL (31-36); Mean Platelet Volume 8.6 fL (7.5-11.2); Platelet Count 118 10^3/uL (150-450); Red Blood Count 2.78 10^6/uL (4.06-5.63); Red Cell Distribution Width 15.2 % (12-17); White Blood Count 3.9 10^3/uL (3.6-10.2)
[2023-07-18 07:50] LABS: ABS Basophils 0.1 10^3/uL (0.0-0.1); ABS Eosinophils 0.1 10^3/uL (0.0-0.5); ABS Lymphocytes 0.6 10^3/uL (1.0-4.8); ABS Monocytes 0.8 10^3/uL (0.0-1.1); ABS Neutrophils 2.3 10^3/uL (1.5-7.6); ABS Nucleated RBC 0.01 10^3/ul; Eosinophil % 3.6 %; Nucleated Red Blood Cells % 0.2 %/100WBC (0.0-0.8)
[2023-07-18] MEDS: Magnesium Sulfate 2 gm BAG 2 GM/50 ML BAG IVPB ONE (08:26)
[2023-07-19 06:49] LABS: Calcium 9.1 mg/dL (8.6-10.3); Creatinine, Serum 0.86 mg/dL (0.67-1.17); Magnesium 1.7 mg/dL (1.9-2.7); Phosphorus 4.2 mg/dL (2.5-5.0); Potassium 4.1 mmol/L (3.5-5.0); eGFR CKD-EPI 101.6 (>60)
[2023-07-19 06:51] LABS: Hematocrit 29.3 % (38-53); Hemoglobin 10.1 g/dL (13.2-16.3); Mean Corpuscular Hemoglobin 34.8 pg (27-33); Mean Corpuscular Hgb Conc 34.4 g/dL (31-36); Mean Corpuscular Volume 101.3 fL (80-97); Mean Platelet Volume 8.5 fL (7.5-11.2); Platelet Count 129 10^3/uL (150-450); Red Blood Count 2.89 10^6/uL (4.06-5.63); Red Cell Distribution Width 15.3 % (12-17)
[2023-07-19] MEDS: Magnesium Sulfate 2 gm BAG 2 GM/50 ML BAG IVPB ONE (09:47)
[2023-07-19 10:13] LABS: ABS Basophils 0.1 10^3/uL (0.0-0.1); ABS Eosinophils 0.1 10^3/uL (0.0-0.5); ABS Lymphocytes 0.6 10^3/uL (1.0-4.8); ABS Neutrophils 2.1 10^3/uL (1.5-7.6); Eosinophil % 3.6 %; Lymphocyte % 15.3 %; Nucleated Red Blood Cells % 0.1 %/100WBC (0.0-0.8)
[2023-07-19] MEDS: Thiamine 100 MG/ML 2 ml VIAL 250 MG in NS 0.9% 100 ml BAG 100 ML IV SCH (10:55)
[2023-07-19 19:03] LABS: Rapid COVID-19 Molecular Undetected (Undetected)
[2023-07-20 07:06] LABS: ABS Basophils 0.2 10^3/uL (0.0-0.1); ABS Eosinophils 0.1 10^3/uL (0.0-0.5); ABS Lymphocytes 0.6 10^3/uL (1.0-4.8); ABS Monocytes 1.1 10^3/uL (0.0-1.1); ABS Neutrophils 2.2 10^3/uL (1.5-7.6); Eosinophil % 2.8 %; Hematocrit 28.9 % (38-53); Hemoglobin 9.8 g/dL (13.2-16.3); Mean Corpuscular Hemoglobin 34.5 pg (27-33); Mean Corpuscular Volume 101.4 fL (80-97); Mean Platelet Volume 8.6 fL (7.5-11.2); Nucleated Red Blood Cells % 0.1 %/100WBC (0.0-0.8); Platelet Count 144 10^3/uL (150-450); Red Blood Count 2.85 10^6/uL (4.06-5.63); Red Cell Distribution Width 15.3 % (12-17); White Blood Count 4.2 10^3/uL (3.6-10.2)
[2023-07-20 07:11] LABS: Creatinine, Serum 0.89 mg/dL (0.67-1.17); Magnesium 1.7 mg/dL (1.9-2.7); Phosphorus 2.9 mg/dL (2.5-5.0); Potassium 4.3 mmol/L (3.5-5.0); eGFR CKD-EPI 100.6 (>60)
[2023-07-20] MEDS: Magnesium Sulfate 2 gm BAG 2 GM/50 ML BAG IVPB ONE (08:03)
[2023-07-21 06:10] LABS: Hematocrit 29.4 % (38-53); Mean Corpuscular Hemoglobin 34.7 pg (27-33); Mean Corpuscular Volume 102.2 fL (80-97); Platelet Count 175 10^3/uL (150-450); Red Blood Count 2.88 10^6/uL (4.06-5.63); Red Cell Distribution Width 15.4 % (12-17); White Blood Count 4.8 10^3/uL (3.6-10.2)
[2023-07-21 06:16] LABS: ABS Basophils 0.1 10^3/uL (0.0-0.1); ABS Eosinophils 0.1 10^3/uL (0.0-0.5); ABS Lymphocytes 0.6 10^3/uL (1.0-4.8); ABS Monocytes 1.2 10^3/uL (0.0-1.1); ABS Neutrophils 2.7 10^3/uL (1.5-7.6); Eosinophil % 2.9 %; Lymphocyte % 13.5 %; Nucleated Red Blood Cells % 0.1 %/100WBC (0.0-0.8)
[2023-07-21 06:28] LABS: Calcium 9.2 mg/dL (8.6-10.3); Creatinine, Serum 0.89 mg/dL (0.67-1.17); Magnesium 1.7 mg/dL (1.9-2.7); Potassium 4.4 mmol/L (3.5-5.0); eGFR CKD-EPI 100.6 (>60)
[2023-07-21] MEDS: Magnesium Sulfate 2 gm BAG 2 GM/50 ML BAG IVPB ONE (09:12)
[2023-07-21 10:08] VITALS: BP 108/72
[2023-07-21] MEDS ORDERED: Magnesium Chloride EC 64 mgTAB PO SCH (13:00)
[2023-07-21] MEDS ORDERED: CMCS: Acamprosate DR 333 mg TAB (NF) PO SCH (21:00)
== END 2023-07-21 13:20 | DRG 775 ==
LOC: ED 15:33 → SUATTDRO 18:23 → EDHOLD 18:23 → MEDTELE 20:15
PROVIDERS: ADMIT Internal Medicine; ATTEND Internal Medicine